=== PATIENT | female | born 1950 | race African-American/Black ===

== ENCOUNTER 2018-11-16 16:23 | Inpatient (IN) | payer MEDICARE, OTHER ==
[~2018-11-16] VITALS: Ht 160 cm; Wt 73.0 kg
[2018-11-16] MEDS ORDERED: ANORO ELLIPTA1 EACH (16:35)
[2018-11-16] MEDS ORDERED: BREO ELLIPTA 11 EACH IH (16:35)
[2018-11-16] MEDS ORDERED: VENTOLIN HFA18 GM INH (16:35)
[2018-11-16] MEDS ORDERED: METFORMIN HCL500 M1 ORAL (16:35)
[2018-11-16 16:45] VITALS: BP 116/78
[2018-11-16] MEDS ORDERED: Solu-MEDROL 125mg Inj IVP ONE (16:45)
[2018-11-16] MEDS: Ipratropium 0.02% Inh Soln 2.5ml UD HHN SCH ×2 (16:56→17:04)
[2018-11-16] MEDS: Albuterol ud Inhalation HHN SCH ×2 (16:57→17:04)
[2018-11-16 17:44] LABS: BASOPHILS % (AUTO) 1.7 % (0.0-2.0); EOSINOPHILS % (AUTO) 1.5 % (0.0-3.0); HEMATOCRIT 46.1 % (37.0-47.0); HEMOGLOBIN 15.9 G/DL (12.0-16.0); LYMPHOCYTES % (AUTO) 22.7 % (20.0-45.0); MEAN CORPUSCULAR VOLUME 87 FL (80-99); MONOCYTES % (AUTO) 5.3 % (1.0-10.0); NEUTROPHILS % (AUTO) 68.8 % (45.0-75.0); PLATELET COUNT 374 K/UL (150-450); RED BLOOD COUNT 5.32 M/UL (4.20-5.40); RED CELL DISTRIBUTION WIDTH 12.1 % (11.6-14.8)
[2018-11-16 17:50] LABS: ANION GAP 13 mmol/L (5-15); BLOOD UREA NITROGEN 20 mg/dL (7-18); CALCIUM 10.5 MG/DL (8.5-10.1); CARBON DIOXIDE 25 MMOL/L (21-32); CHLORIDE 101 MMOL/L (98-107); CREATININE 1.1 MG/DL (0.55-1.30); POTASSIUM 4.4 MMOL/L (3.5-5.1); SODIUM 139 MMOL/L (136-145)
[2018-11-16 18:20] LABS: ALANINE AMINOTRANSFERASE 25 U/L (12-78); ASPARTATE AMINO TRANSFERASE 26 U/L (15-37); BILIRUBIN,TOTAL 0.4 MG/DL (0.2-1.0); CKMB 4.6 NG/ML (0.0-3.6); CREATINE KINASE 519 U/L (26-308)
[2018-11-16 18:21] LABS: ALBUMIN 4.5 G/DL (3.4-5.0); ALBUMIN/GLOBULIN RATIO 0.9 (1.0-2.7); ALKALINE PHOSPHATASE 55 U/L (46-116)
[2018-11-16 18:26] LABS: APPEARANCE,URINE SLIGHTLY CLOUDY; BILIRUBIN, URINE NEGATIVE (NEGATIVE); GLUCOSE, URINE (UA) NEGATIVE (NEGATIVE); KETONES,URINE 1+ (NEGATIVE); LEUKOCYTE ESTERASE ,URINE 2+ (NEGATIVE); NITRITE,URINE NEGATIVE (NEGATIVE); PH,URINE 5 (4.5-8.0); PROTEIN,URINE 4+ (NEGATIVE); UROBILINOGEN,URINE 1 MG/DL (0.0-1.0)
[2018-11-16 18:27] LABS: COLOR,URINE YELLOW
--- NOTE | 2018-11-16 18:54 | Emergency Room Report ---
History of Present Illness General Chief Complaint: Asthma Source: Patient Present Illness [facility] [id number] female presents ED for evaluation. Referred by PMD Dr. Martin. She has been feeling short of breath with cough for the last few days. History of COPD. Cough is productive with yellowish phlegm. denies fevers or chills. Denies chest pain. Denies sick contacts or recent travel. No other aggravating or relieving factors. Denies any other associated symptoms Allergies: Coded Allergies: No Known Allergies (Unverified , 11/16/18) Patient History Past Medical History: DM, HTN, asthma, COPD Past Surgical History: none Pertinent Family History: none Social History: Denies: smoking, alcohol use, drug use Now: No Immunizations: UTD Reviewed Nursing Documentation: PMH: Agreed; PSxH: Agreed Nursing Documentation-PMH Past Medical History: No History, Except For Hx Hypertension: Yes Hx Asthma: Yes Hx COPD: Yes Hx Diabetes: Yes Review of Systems All Other Systems: negative except mentioned in HPI Physical Exam Vital Signs Date Time Temp Pulse Resp B/P (MAP) Pulse Ox O2 Delivery O2 Flow Rate FiO2 11/16/18 16:29 98.2 102 22 116/78 (91) 91 Room Air 11/16/18 16:30 21 Sp02 EP Interpretation: reviewed, normal General Appearance: no apparent distress, alert, GCS 15, non-toxic Head: normocephalic, atraumatic Eyes: bilateral eye normal inspection, bilateral eye PERRL ENT: hearing grossly normal, normal pharynx, no angioedema, normal voice Neck: full range of motion, supple/symm/no masses Respiratory: chest non-tender, speaking full sentences, wheezing Cardiovascular #1: regular rate, rhythm, no edema Cardiovascular #2: 2+ carotid (R), 2+ carotid (L), 2+ radial (R), 2+ radial (L) , 2+ dorsalis pedis (R), 2+ dorsalis pedis (L) Gastrointestinal: normal bowel sounds, non tender, soft, non-distended, no guarding, no rebound Rectal: deferred Genitourinary: normal inspection, no CVA tenderness Musculoskeletal: back normal, gait/station normal, normal range of motion, non- tender Neurologic: alert, oriented x3, responsive, motor strength/tone normal, sensory intact, speech normal Psychiatric: judgement/insight normal, memory normal, mood/affect normal, no suicidal/homicidal ideation Reflexes: 3+ bicep (R), 3+ bicep (L), 3+ tricep (R), 3+ tricep (L), 3+ knee (R) , 3+ knee (L) Skin: normal color, no rash, warm/dry, well hydrated Lymphatic: no adenopathy Medical Decision Making Diagnostic Impression: Primary Impression: COPD exacerbation ER Course Hospital Course 67-year-old F presenting to ED with SOB. h/o COPD Differential diagnoses include: Pneumonia, CHF exacerbation, pneumothorax, fluid overload Clinical course Patient placed on stretcher. On monitor tech with stable vitals. After initial history and physical, I ordered nebulizer treatments. I ordered labs, IV fluids, EKG, chest x-ray, blood cultures, UA. Labs - no leukocytosis noted, hemoglobin/hematocrit stable, electrolytes okay, lactate 2.8, troponins negative CXR - hyperinflated lungs. no infiltrates IVFS given. abx given. Not sepsis Case discussed with Dr. Martin and he agreed to the patient to his service for further care and support I feel this is a highly complex case requiring extensive working including EKG/ Rhythm strip, Xray/CT/US, Blood/urine lab work, repeat exams while in ED, and administration of strong opiates/narcotics for pain control, admission to hospital or close patient follow up. Diagnosis - COPD exacerbation Patient admitted to floor in serious condition Labs Test 11/16/18 17:07 11/16/18 18:00 White Blood Count 10.0 K/UL (4.8-10.8) Red Blood Count 5.32 M/UL (4.20-5.40) Hemoglobin 15.9 G/DL (12.0-16.0) Hematocrit 46.1 % (37.0-47.0) Mean Corpuscular Volume 87 FL (80-99) Mean Corpuscular Hemoglobin 29.9 PG (27.0-31.0) Mean Corpuscular Hemoglobin Concent 34.4 G/DL (32.0-36.0) Red Cell Distribution Width 12.1 % (11.6-14.8) Platelet Count 374 K/UL (150-450) Mean Platelet Volume 5.6 FL (6.5-10.1) Neutrophils (%) (Auto) 68.8 % (45.0-75.0) Lymphocytes (%) (Auto) 22.7 % (20.0-45.0) Monocytes (%) (Auto) 5.3 % (1.0-10.0) Eosinophils (%) (Auto) 1.5 % (0.0-3.0) Basophils (%) (Auto) 1.7 % (0.0-2.0) Sodium Level 139 MMOL/L (136-145) Potassium Level 4.4 MMOL/L (3.5-5.1) Chloride Level 101 MMOL/L (98-107) Carbon Dioxide Level 25 MMOL/L (21-32) Anion Gap 13 mmol/L (5-15) Blood Urea Nitrogen 20 mg/dL (7-18) Creatinine 1.1 MG/DL (0.55-1.30) Estimat Glomerular Filtration Rate > 60 mL/min (>60) Glucose Level 115 MG/DL (74-106) Lactic Acid Level 2.80 mmol/L (0.4-2.0) Calcium Level 10.5 MG/DL (8.5-10.1) Total Bilirubin 0.4 MG/DL (0.2-1.0) Aspartate Amino Transf (AST/SGOT) 26 U/L (15-37) Alanine Aminotransferase (ALT/SGPT) 25 U/L (12-78) Alkaline Phosphatase 55 U/L (46-116) Total Creatine Kinase 519 U/L (26-308) Creatine Kinase MB 4.6 NG/ML (0.0-3.6) Creatine Kinase MB Relative Index 0.8 Troponin I 0.000 ng/mL (0.000-0.056) Pro-B-Type Natriuretic Peptide 81 pg/mL (0-125) Total Protein 9.5 G/DL (6.4-8.2) Albumin 4.5 G/DL (3.4-5.0) Globulin 5.0 g/dL Albumin/Globulin Ratio 0.9 (1.0-2.7) Urine Color Yellow Urine Appearance Slightly cloudy Urine pH 5 (4.5-8.0) Urine Specific [place] 1.025 (1.005-1.035) Urine Protein 4+ (NEGATIVE) Urine Glucose (UA) Negative (NEGATIVE) Urine Ketones 1+ (NEGATIVE) Urine Blood 1+ (NEGATIVE) Urine Nitrite Negative (NEGATIVE) Urine Bilirubin Negative (NEGATIVE) Urine Urobilinogen 1 MG/DL (0.0-1.0) Urine Leukocyte Esterase 2+ (NEGATIVE) Urine RBC 5-10 /HPF (0 - 2) Urine WBC 2-4 /HPF (0 - 2) Urine Squamous Epithelial Cells Few /LPF (NONE/OCC) Urine Bacteria Many /HPF (NONE) EKG Diagnostic Results Rate: normal Rhythm: NSR ST Segments: no acute changes ASA given to the pt in ED: No Rhythm Strip Diag. Results EP Interpretation: yes Rhythm: NSR, no PVC's, no ectopy Chest X-Ray Diagnostic Results Chest X-Ray Diagnostic Results : Chest X-Ray Ordered: Yes # of Views/Limited/Complete: 1 View Indication: Shortness of Breath EP Interpretation: Yes Interpretation: no consolidation, no effusion, no pneumothorax, no acute cardiopulmonary disease Impression: No acute disease Electronically Signed by: Electronically signed by Pedro Leal MD Last Vital Signs Date Time Temp Pulse Resp B/P (MAP) Pulse Ox O2 Delivery O2 Flow Rate FiO2 11/16/18 16:45 98.2 80 20 116/78 97 Room Air 21 Status: improved Disposition: ADMITTED INPATIENT Condition: Serious Referrals: Lee Martin MD (PCP) Pedro Leal MD Nov 16, 2018 18:54
[2018-11-16] MEDS ORDERED: Sodium Chloride 2,200 ML IVLG ONE (20:00)
[2018-11-16 21:30] VITALS: BP 148/95
[2018-11-16] MEDS ORDERED: cefTRIAXone 1 GM in D5W 55 ML IVPB SCH (22:30)
[2018-11-17] VITALS (7 sets, daily range): BP systolic 97–113; BP diastolic 61–86
[2018-11-17] MEDS: Solu-MEDROL 40mg Inj IVP SCH ×3 (00:23→14:00)
[2018-11-17] MEDS: Albuterol/Ipratropium 3ml neb HHN SCH ×7 (01:35→23:11)
--- NOTE | 2018-11-17 03:01 | History and Physical Report ---
DATE OF ADMISSION: 11/16/2018 REASON FOR ADMISSION: Acute exacerbation of COPD. HISTORY OF PRESENT ILLNESS: This 67-year-old female, has had 2 weeks of progressive cough, yellow-green sputum production, and shortness of breath. She was treated with oral therapy, but failed to improve and in fact has not been able to catch her breath for the past day, wheezing nonstop, and unable to lie flat. She was seen in my office and then referred to the emergency room because of her failure to improve. PAST MEDICAL HISTORY: Hypertension, chronic obstructive pulmonary disease, type 2 diabetes mellitus, and peripheral artery disease. MEDICATIONS: Reviewed and reconciled. ALLERGIES: None known. SOCIAL HISTORY: Prior smoker. FAMILY HISTORY: Noncontributory. REVIEW OF SYSTEMS: She has had tactile fevers. No chills. There is no history of retinopathy. There is no known history of flow-limiting coronary disease. She had a normal coronary calcium scan in the past. Her echocardiogram has revealed normal ejection fraction with concentric hypertrophy and severe pulmonary hypertension with PA systolic pressure of 59. There is no history of positive PPD. There is no history of abnormal blood clotting. Diabetes is managed with oral therapy. Cholesterol parameters are not known. There is no history of thyroid disorder. There is no history of seizure or stroke. She denies change in bowel habits. There is no history of kidney disease. PHYSICAL EXAM: VITAL SIGNS: Blood pressure 116/78, pulse 102, respirations 22, and afebrile. Room air oxygen saturation 91% at rest. HEENT: Normocephalic and atraumatic. Conjunctivae pink. Sclerae are anicteric. Oropharynx clear. Mucous membrane is moist. NECK: Supple. Jugular venous pressure normal. There is some accessory muscle use. LUNGS: Poor breath sounds. Scattered rhonchi and expiratory wheezes. CARDIAC: Regular rhythm and rate. Normal S1, S2. There is a 1/6 systolic murmur at the lower left sternal border. ABDOMEN: Soft and nontender. No guarding, rebound, or masses. EXTREMITIES: No clubbing or cyanosis. No edema. NEUROLOGIC: Nonfocal. There is some resting tremor. No asterixis. SKIN: Intact. LABORATORY DATA: White count 10 and hemoglobin 15.9. Lactic acid 2.8. Sodium 139, potassium 4.4, bicarbonate 25, BUN 20, and creatinine 1.1. Glucose 115. CK 519. Troponin 0. Albumin 4.5. Chest x-ray reveals no acute process. IMPRESSION: 1. Chronic obstructive pulmonary disease with acute exacerbation. 2. Acute bronchospasm. 3. Acute bronchitis. 4. Lactic acidosis. 5. Hypoxia. 6. Type 2 diabetes mellitus with hyperglycemia. 7. Pulmonary hypertension. 8. Non-sustained ventricular ectopy. PLAN: 1. Inhaled bronchodilators. 2. Intravenous steroids. 3. Empiric antimicrobials. 4. Insulin coverage by sliding scale. 5. IV fluid hydration. 6. Serial lactic acid and CK levels. 7. DVT prophylaxis. 8. Avoid metformin. Lee Martin M.D. DR: CHEYENNE JOB#: [id number] CC: MARCELINO
[2018-11-17] MEDS ORDERED: NovoLOG Insulin Flexpen SUBQ SCH (06:30)
[2018-11-17] MEDS: NovoLOG Insulin Flexpen SUBQ SCH ×4 (07:25→21:13)
[2018-11-17 08:39] LABS: ALANINE AMINOTRANSFERASE 21 U/L (12-78); ALBUMIN 3.8 G/DL (3.4-5.0); ALBUMIN/GLOBULIN RATIO 0.8 (1.0-2.7); ALKALINE PHOSPHATASE 45 U/L (46-116); ANION GAP 11 mmol/L (5-15); ASPARTATE AMINO TRANSFERASE 20 U/L (15-37); BILIRUBIN,TOTAL 0.2 MG/DL (0.2-1.0); BLOOD UREA NITROGEN 19 mg/dL (7-18); CALCIUM 9.6 MG/DL (8.5-10.1); CARBON DIOXIDE 23 MMOL/L (21-32); CHLORIDE 104 MMOL/L (98-107); CREATINE KINASE 446 U/L (26-308); POTASSIUM 5.1 MMOL/L (3.5-5.1); SODIUM 138 MMOL/L (136-145)
--- NOTE | 2018-11-17 16:45 | Consultation ---
DATE OF CONSULTATION: 11/17/2018 PULMONARY CONSULTATION HISTORY OF PRESENT ILLNESS: This is a very pleasant 67-year-old female, who came to the hospital for shortness of breath. The patient reports history of chronic obstructive pulmonary disease and asthma. She has been a smoker in the past, but quit many years ago. She was seen and worked up and admitted to the hospital with diagnoses of respiratory insufficiency. PAST MEDICAL HISTORY: Diabetes mellitus, hypertension, asthma, and chronic obstructive pulmonary disease, she has been smoker in the past, but quit, does not smoke any more. CURRENT MEDICATIONS: Include Rocephin, DuoNebs, subcutaneous heparin, insulin sliding scale, methylprednisone 40 mg intravenous q.8, and albuterol. REVIEW OF SYSTEMS: Denies any headaches, hematemesis, melena, hematochezia, night sweats, or weight loss. PHYSICAL EXAMINATION: GENERAL: Reveals a 67-year-old female. HEENT: Unremarkable. LUNGS: Clear breath sounds bilaterally with few rhonchi. ABDOMEN: Soft. EXTREMITIES: There is no edema. NEUROLOGIC: Nonfocal. LABORATORY DATA: Lab testing shows elevated lactic acid of 2.8, which has increased further to 4.3. Glucose 145. Total CK is 446. Urinalysis is negative. Imaging studies per report is negative. IMPRESSION: 1. Worsening lactic acidemia. 2. Exacerbation of COPD. 3. Diabetes mellitus. PLAN: The patient is admitted to the hospital. Continue current medications and care. I will send urine toxicology. Provide intravenous fluids and breathing treatments. We will follow carefully. Edenilson Laird M.D. DR: NARENDRA JOB#: [id number] CC:
[2018-11-17] MEDS ORDERED: Heparin1,000 units/500ml Premix(Conc:2 units/ml) IV PRN (21:30)
[2018-11-17] MEDS ORDERED: Lidocaine 1% Plain 30 ml INJ PRN (21:30)
[2018-11-18] VITALS: BP 122/76
[2018-11-18] MEDS: Albuterol/Ipratropium 3ml neb HHN SCH ×6 (03:10→22:58)
[2018-11-18 04:00] VITALS: BP 115/67
--- NOTE | 2018-11-18 04:15 | Progress Note ---
DATE: 11/17/2018 INTERNAL MEDICINE PROGRESS NOTE SUBJECTIVE: The patient has poor intravenous access and presently, we were unable to obtain intravenous access even with the use of a vein finder. The patient still has shortness of breath with ambulation in the room. She still has congestion. OBJECTIVE: VITAL SIGNS: Blood pressure 113/72, pulse 85, and respirations 20. Afebrile. LUNGS: With coarse breath sounds. Few wheezes. CARDIAC: Regular rhythm and rate. Normal S1, S2 with a fourth heart sound. ABDOMEN: Soft. EXTREMITIES: No edema. LABORATORY DATA: Urine culture, gram-negative rods. Lactic acid 4.3, repeated 3.6. BUN 19 and creatinine 1. Potassium 5.1. TSH normal. Urine tox screen negative. IMPRESSION: 1. Chronic obstructive pulmonary disease exacerbation. 2. Acute bronchospasm. 3. Lactic acidosis. 4. Urinary tract infection. 5. Mild rhabdomyolysis. 6. Type 2 diabetes mellitus. PLAN: 1. Continue hydration. 2. Renal consult. 3. Antimicrobials. 4. Inhaled bronchodilators. 5. Intravenous steroids. 6. DVT prophylaxis. 7. No resumption of metformin. Lee Martin M.D. DR: CHEYENNE JOB#: [id number] CC: MARCELINO
[2018-11-18] MEDS: NovoLOG Insulin Flexpen SUBQ SCH ×4 (06:37→21:04)
[2018-11-18 08:00] VITALS: BP 111/82
--- NOTE | 2018-11-18 08:33 | Pulmonology Progress Note ---
Assessment/Plan Assessment/Plan 1. Worsening lactic acidemia. Now down-trending 2. Exacerbation of COPD. 3. Diabetes mellitus. PLAN: Continue current medications and care. Negative urine toxicology. Continue fluids and breathing treatments. I will follow carefully. Subjective Interval Events: Better today; urine tox negative; lactic acid decreazed Constitutional: Reports: no symptoms HEENT: Repors: no symptoms Respiratory: Reports: shortness of breath Cardiovascular: Reports: no symptoms Gastrointestinal/Abdominal: Reports: no symptoms Genitourinary: Reports: no symptoms Allergies: Coded Allergies: No Known Allergies (Unverified , 11/16/18) Objective Last 24 Hour Vital Signs Date Time Temp Pulse Resp B/P (MAP) Pulse Ox O2 Delivery O2 Flow Rate FiO2 11/18/18 07:23 89 18 99 Nasal Cannula 3.0 32 11/18/18 07:16 98 18 96 Nasal Cannula 3.0 32 11/18/18 04:00 98.4 80 20 115/67 (83) 98 11/18/18 03:23 92 18 97 Nasal Cannula 3.0 32 11/18/18 03:10 84 18 95 Nasal Cannula 3.0 32 11/18/18 00:00 98.1 95 20 122/76 (91) 96 11/17/18 23:25 94 18 96 Nasal Cannula 3.0 32 11/17/18 23:12 86 18 96 Nasal Cannula 3.0 32 11/17/18 21:00 Nasal Cannula 2.0 11/17/18 20:00 98.2 85 20 113/72 (86) 100 11/17/18 19:54 88 18 97 Nasal Cannula 3.0 32 11/17/18 19:42 88 20 97 Nasal Cannula 3.0 32 11/17/18 16:00 98.2 100 21 104/69 (81) 98 11/17/18 14:44 96 18 98 Nasal Cannula 3.0 32 11/17/18 14:40 94 20 98 Nasal Cannula 3.0 32 11/17/18 12:00 97.7 80 20 113/72 (86) 99 11/17/18 11:48 99 18 98 Nasal Cannula 3.0 32 11/17/18 11:40 92 20 98 Nasal Cannula 3.0 32 11/17/18 10:13 Nasal Cannula 2.0 11/17/18 10:06 88 103/71 (82) 11/17/18 08:37 99 18 98 Nasal Cannula 3.0 32 Intake and Output 11/17/18 11/18/18 19:00 07:00 Intake Total 1300 ml Output Total 300 ml Balance 1300 ml -300 ml Intake Oral 1000 ml IV Total 300 ml Output Urine Total 300 ml # Voids 5 # Bowel Movements 3 General Appearance: no acute distress HEENT: normocephalic Respiratory/Chest: chest wall non-tender, lungs clear Cardiovascular: normal peripheral pulses Abdomen: normal bowel sounds Microbiology Date/Time Source Procedure Growth Status 11/16/18 17:17 Blood Blood Culture - Preliminary NO GROWTH AFTER 24 HOURS Resulted 11/16/18 17:07 Blood Blood Culture - Preliminary NO GROWTH AFTER 24 HOURS Resulted 11/16/18 18:00 Urine,Clean Catch Urine Culture - Preliminary Gram Negative Simba Resulted Laboratory Tests 11/17/18 16:25: Lactic Acid Level 3.60H 11/17/18 19:45: Urine Opiates Screen Negative, Urine Barbiturates Screen Negative, Phencyclidine (PCP) Screen Negative, Urine Amphetamines Screen Negative, Urine Benzodiazepines Screen Negative, Urine Cocaine Screen Negative, Urine Marijuana (THC) Screen Negative Current Medications Medications (Trade) Dose Ordered Sig/Sapphire Route PRN Reason Start Time Stop Time Status Last Admin Dose Admin Acetaminophen (Tylenol) 650 mg Q4H PRN ORAL For Pain 11/17/18 19:00 12/17/18 18:59 11/18/18 06:43 Albuterol/ Ipratropium (Albuterol/ Ipratropium) 3 ml Q4HRT HHN 11/16/18 23:00 11/21/18 22:59 11/18/18 07:15 Azithromycin (Zithromax) 500 mg DAILY ORAL 11/18/18 09:00 11/25/18 08:59 Chlorhexidine Gluconate (Wen-Hex 2%) 1 applic DAILY@1999 TOPIC 11/18/18 20:00 12/18/18 19:59 Dextrose (Dextrose 50%) 25 ml Q30M PRN IV Hypoglycemia 11/17/18 01:30 12/17/18 01:29 Dextrose (Dextrose 50%) 50 ml Q30M PRN IV Hypoglycemia 11/17/18 01:30 12/17/18 01:29 Heparin Sodium (Porcine) (Heparin 5000 units/ml) 5,000 units EVERY 12 HOURS SUBQ 11/18/18 09:00 12/18/18 08:59 Heparin Sodium/ Sodium Chloride (Heparin 1000 units/500ml Premix) 1,000 unit ONCE PRN IV picc line placement 11/17/18 21:30 11/19/18 21:29 Insulin Aspart (NovoLOG) BEFORE MEALS AND HS SUBQ 11/17/18 06:30 12/17/18 06:29 11/18/18 06:37 Lidocaine HCl (Xylocaine 1% 30ml) 30 ml ONCE PRN INJ picc line placement 11/17/18 21:30 11/19/18 21:29 Methylprednisolone Sodium Succinate (Solu-MEDROL) 40 mg EVERY 12 HOURS IVP 11/18/18 09:00 12/18/18 08:59 Sodium Chloride 1,000 ml @ 100 mls/hr Q10H IV 11/16/18 21:30 12/16/18 21:29 11/17/18 00:23 Edenilson Laird MD Nov 18, 2018 08:33
[2018-11-18] MEDS: Heparin 5000 units/ml inj SUBQ SCH ×2 (09:00→21:03)
[2018-11-18] MEDS ORDERED: Solu-MEDROL 40mg Inj IVP SCH (09:00)
[2018-11-18] MEDS ORDERED: Azithromycin 250mg tab ORAL SCH (09:00)
[2018-11-18 12:00] VITALS: BP 117/87
[2018-11-18] MEDS: Solu-MEDROL 40mg Inj IVP SCH ×2 (15:47→20:59)
[2018-11-18] MEDS: cefTRIAXone 1 GM in D5W 55 ML IVPB SCH (15:53)
[2018-11-18 16:00] VITALS: BP 102/75
[2018-11-18 16:25] LABS: BASOPHILS % (AUTO) 0.3 % (0.0-2.0); EOSINOPHILS % (AUTO) 0.2 % (0.0-3.0); HEMATOCRIT 34.6 % (37.0-47.0); HEMOGLOBIN 11.7 G/DL (12.0-16.0); MEAN CORPUSCULAR VOLUME 89 FL (80-99); MONOCYTES % (AUTO) 7.8 % (1.0-10.0); NEUTROPHILS % (AUTO) 79.8 % (45.0-75.0); PLATELET COUNT 286 K/UL (150-450); RED CELL DISTRIBUTION WIDTH 12.4 % (11.6-14.8); WHITE BLOOD COUNT 15.7 K/UL (4.8-10.8)
[2018-11-18 16:41] LABS: ALANINE AMINOTRANSFERASE 30 U/L (12-78); ALBUMIN 3.3 G/DL (3.4-5.0); ALBUMIN/GLOBULIN RATIO 0.9 (1.0-2.7); ALKALINE PHOSPHATASE 51 U/L (46-116); ANION GAP 3 mmol/L (5-15); ASPARTATE AMINO TRANSFERASE 24 U/L (15-37); BILIRUBIN,TOTAL 0.1 MG/DL (0.2-1.0); BLOOD UREA NITROGEN 19 mg/dL (7-18); CALCIUM 9.1 MG/DL (8.5-10.1); CARBON DIOXIDE 31 MMOL/L (21-32); CHLORIDE 105 MMOL/L (98-107); CREATINE KINASE 261 U/L (26-308); SODIUM 139 MMOL/L (136-145)
--- NOTE | 2018-11-18 17:46 | Diagnostic Imaging Report ---
Indication: Dyspnea Comparison: None A single view chest radiograph was obtained. Findings: No infiltrate identified. Heart size is within normal limits. The aorta is mildly ectatic. Pulmonary vascularity is within normal limits. No pleural effusion identified. Bones are osteopenic. IMPRESSION: No acute disease
--- NOTE | 2018-11-18 17:47 | Diagnostic Imaging Report ---
Indications: Needs long-term IV access Technique: Ultrasound confirms patent compressible left basilic vein. Total sterile technique, including sterile probe cover and sterile gel, hat, mask, sterile gown, large sterile drape, and preparation with 2% chlorhexidine utilized. Local anesthesia with 1% lidocaine. Under real-time ultrasound guidance, puncture basilic vein using 21-gauge needle, documented and archived, passage 0.018 guidewire under direct fluoroscopy, which was used to determine appropriate catheter length, exchange for 4 [place] peel-away sheath. 4 [place] Bard dual-lumen power PICC cut to 46 cm. It was inserted through the peel-away sheath. Peel-away sheath and guidewire removed. Catheter fixed to the skin. Both catheter ports aspirated and flushed. Patient tolerated procedure well, without immediate complication. Digital radiograph documents satisfactory catheter tip position, at the cavoatrial junction. Total fluoroscopy time 25.7 seconds. Total dose area product 2.31 milligray Total number of images: 1 Impression: Successful placement of PICC under sonographic and fluoroscopic guidance, as described above.
--- NOTE | 2018-11-18 19:15 | Consultation ---
DATE OF CONSULTATION: 11/18/2018 NEPHROLOGY CONSULTATION REASON FOR CONSULTATION: Lactic acidosis. HISTORY OF PRESENT ILLNESS: The patient is a 67-year-old lady with a history of chronic obstructive pulmonary disease who presents with increasing shortness of breath, wheezing, cough, yellow-green sputum. She was admitted to the hospital for the above. She was found to have elevated lactate levels. PAST MEDICAL HISTORY: There is a history of diabetes type 2, peripheral vascular disease, and hypertension. PAST SURGICAL HISTORY: Left knee. ALLERGIES: None known. HABITS: She is a smoker and quit. Denies alcohol or drugs. HOME MEDICATIONS: She cannot list other than metformin and inhalers. Medications listed in the computer database are reviewed. REVIEW OF SYSTEMS: HEAD EYES, EARS, NOSE, AND THROAT: The patient's hearing is good. ENDOCRINE: Diabetes as above. No known thyroid disease. PULMONARY: History of chronic obstructive pulmonary disease and severe pulmonary hypertension. CARDIAC: History of normal ejection fraction. No definite myocardial infarction. GASTROINTESTINAL: Intermittent heartburn, mild. No hematochezia or melena. GENITOURINARY: No dysuria or hematuria. MUSCULOSKELETAL: No severe arthritis. NEUROLOGIC: No CVA or seizures. PHYSICAL EXAMINATION: GENERAL: The patient is alert lady, lying in bed, in no acute distress. VITAL SIGNS: Temperature 98.4, pulse 80, respiratory rate 20, blood pressure 115/67. HEENT: Sclerae are nonicteric. Ocular motions intact in all directions. Oral mucosa moist. NECK: No adenopathy or thyroid enlargement. LUNGS: Clear. Distant breath sounds. HEART: Rhythm is regular. I hear no murmur. ABDOMEN: Soft without organomegaly or masses. EXTREMITIES: No edema, cyanosis, or clubbing. NEUROLOGIC: She is alert and oriented. Cranial nerves are intact. PERTINENT LABORATORY DATA: On admission, sodium 139, potassium 4.4, chloride 101, CO2 25, BUN 20 creatinine 1.1. Glucose 115. Calcium is 10.5 with an albumin of 4.5. CPK is elevated at 519. Troponin is 0. Lactate level 2.8, 3.2, 4.3, and 3.6. Repeat CPK 446. TSH is 1.11. White count 10,000 and hemoglobin is 15.9, Tox screen, urine is negative. Urinalysis shows 2 to 4 white cells and 5 to 10 red cells per high-power field. She had a urine culture that is positive. She has 4+ proteinuria. IMPRESSION: 1. Chronic obstructive pulmonary disease with acute exacerbation 2. Possible sepsis although clinically she does not appear septic and labs do not seem to correlate with sepsis although she did have lactic acid elevation. 3. Elevated lactate level which could be false positive. It could be related to her taking metformin at home. She could have underlying sepsis. She does not have a metabolic acidosis based on her electrolytes. Her CO2 serially has been normal so it appears that if she did have a transient lactic acidosis, she is improving. PLAN: Repeat laboratories are pending. I would keep her well hydrated. Continue antibiotics and pulmonary care. I will hold off on metformin until she is stabilized and then possibly resume. Thank you so much for allowing me to participate in her care. Vic Boudreaux M.D. DR: Rohit JOB#: [id number] CC:
[2018-11-18 19:57] LABS: APPEARANCE,URINE CLEAR; BILIRUBIN, URINE NEGATIVE (NEGATIVE); COLOR,URINE PALE YELLOW; GLUCOSE, URINE (UA) NEGATIVE (NEGATIVE); KETONES,URINE NEGATIVE (NEGATIVE); LEUKOCYTE ESTERASE ,URINE 1+ (NEGATIVE); NITRITE,URINE NEGATIVE (NEGATIVE); PH,URINE 6 (4.5-8.0); PROTEIN,URINE NEGATIVE (NEGATIVE); UROBILINOGEN,URINE NORMAL MG/DL (0.0-1.0)
[2018-11-18 20:00] VITALS: BP 124/84
[2018-11-18] MEDS: Dyna-Hex 2% Top Sol 2oz TOPIC SCH (20:58)
[2018-11-19] VITALS: BP 109/78
[2018-11-19] MEDS: Albuterol/Ipratropium 3ml neb HHN SCH ×6 (03:14→23:00)
[2018-11-19 04:00] VITALS: BP 140/86
--- NOTE | 2018-11-19 04:00 | Progress Note ---
DATE: 11/18/2018 INTERNAL MEDICINE PROGRESS NOTE SUBJECTIVE: PICC line was placed for adequate access. The patient is back on her intravenous therapy. She still has wheezing and shortness of breath. OBJECTIVE: VITAL SIGNS: Blood pressure 124/84, pulse 106, and respiratory rate 18. LUNGS: Diminished breath sounds and expiratory wheezes. HEART: Regular rhythm. Rapid rate. Normal S1 and S2. ABDOMEN: Soft. EXTREMITIES: No edema. LABORATORY DATA: Urine culture is pending. White count 15 and hemoglobin 11.7. Potassium 4, BUN 19, creatinine 1, and albumin 3.3. Lactic acid now 1.5. CK down to 261. IMPRESSION: 1. Resolved lactic acidosis. 2. Chronic obstructive pulmonary disease with acute exacerbation. 3. Type 2 diabetes mellitus. 4. Hypertension. 5. ____ rhabdomyolysis. 6. Urinary tract infection. PLAN: 1. Taper intravenous fluids. 2. Taper steroids ____ bronchospasm improves. 3. Empiric antimicrobials. 4. Await final urine culture. 5. No resumption of metformin. Lee Martin M.D. DR: LINDSAY JOB#: [id number] CC:
[2018-11-19] MEDS: Solu-MEDROL 40mg Inj IVP SCH (06:38)
[2018-11-19] MEDS: NovoLOG Insulin Flexpen SUBQ SCH ×4 (06:40→21:51)
--- NOTE | 2018-11-19 07:58 | Pulmonology Progress Note ---
Assessment/Plan Assessment/Plan 1. Worsening lactic acidemia. Now down-trending 2. Exacerbation of COPD. 3. Diabetes mellitus. PLAN: Continue current medications and care. Negative urine toxicology. Continue fluids and breathing treatments. I will follow carefully. Seen by nephrology. Subjective Interval Events: No new events Constitutional: Reports: no symptoms HEENT: Repors: no symptoms Respiratory: Reports: no symptoms Cardiovascular: Reports: no symptoms Gastrointestinal/Abdominal: Reports: no symptoms Genitourinary: Reports: no symptoms Neurologic: Reports: no symptoms Allergies: Coded Allergies: No Known Allergies (Unverified , 11/16/18) Objective Last 24 Hour Vital Signs Date Time Temp Pulse Resp B/P (MAP) Pulse Ox O2 Delivery O2 Flow Rate FiO2 11/19/18 07:35 104 20 95 Nasal Cannula 2.0 28 11/19/18 07:35 95 Nasal Cannula 2.0 28 11/19/18 04:00 98.4 110 18 140/86 (104) 95 11/19/18 03:21 102 20 100 Nasal Cannula 2.0 28 11/19/18 03:14 104 20 98 Nasal Cannula 2.0 28 11/19/18 00:00 98.1 109 19 109/78 (88) 97 11/18/18 23:05 99 20 99 Nasal Cannula 3.0 32 11/18/18 22:58 98 20 96 Nasal Cannula 3.0 32 11/18/18 21:00 Nasal Cannula 2.0 11/18/18 20:15 95 Nasal Cannula 3.0 32 11/18/18 20:08 110 18 94 Nasal Cannula 3.0 32 11/18/18 20:00 98.7 106 18 124/84 (97) 98 11/18/18 16:00 97.4 108 22 102/75 (84) 99 11/18/18 15:47 105 20 98 Nasal Cannula 3.0 32 11/18/18 15:32 111 20 99 Nasal Cannula 3.0 32 11/18/18 12:00 97.0 117 22 117/87 (97) 98 11/18/18 12:00 98 20 99 Nasal Cannula 3.0 32 11/18/18 11:53 105 20 98 Nasal Cannula 3.0 32 11/18/18 09:00 Nasal Cannula 2.0 11/18/18 08:00 97.2 88 22 111/82 (92) 98 Intake and Output 11/18/18 11/19/18 19:00 07:00 Intake Total 1185 ml 450 ml Balance 1185 ml 450 ml Intake Oral 960 ml IV Total 225 ml 450 ml # Voids 3 2 General Appearance: no acute distress HEENT: normocephalic Respiratory/Chest: chest wall non-tender Cardiovascular: normal peripheral pulses, normal rate Abdomen: normal bowel sounds Microbiology Date/Time Source Procedure Growth Status 11/16/18 17:17 Blood Blood Culture - Preliminary NO GROWTH AFTER 48 HOURS Resulted 11/16/18 17:07 Blood Blood Culture - Preliminary NO GROWTH AFTER 48 HOURS Resulted 11/16/18 18:00 Urine,Clean Catch Urine Culture - Final Escherichia Coli Complete Laboratory Tests 11/18/18 15:30: White Blood Count 15.7H, Red Blood Count 3.90L, Hemoglobin 11.7L, Hematocrit 34.6L, Mean Corpuscular Volume 89, Mean Corpuscular Hemoglobin 30.0, Mean Corpuscular Hemoglobin Concent 33.8, Red Cell Distribution Width 12.4, Platelet Count 286, Mean Platelet Volume 5.5L, Neutrophils (%) (Auto) 79.8H, Lymphocytes (%) (Auto) 12.0L, Monocytes (%) (Auto) 7.8, Eosinophils (%) (Auto) 0.2, Basophils (%) (Auto) 0.3, Sodium Level 139, Potassium Level 4.0, Chloride Level 105, Carbon Dioxide Level 31, Anion Gap 3L, Blood Urea Nitrogen 19H, Creatinine 1.0, Estimat Glomerular Filtration Rate > 60, Glucose Level 115H, Lactic Acid Level 1.50, Calcium Level 9.1, Total Bilirubin 0.1L, Aspartate Amino Transf (AST /SGOT) 24, Alanine Aminotransferase (ALT/SGPT) 30, Alkaline Phosphatase 51, Total Creatine Kinase 261, Total Protein 7.1, Albumin 3.3L, Globulin 3.8, Albumin/Globulin Ratio 0.9L 11/18/18 18:30: Urine Color Pale yellow, Urine Appearance Clear, Urine pH 6, Urine Specific [place] 1.020, Urine Protein Negative, Urine Glucose (UA) Negative, Urine Ketones Negative, Urine Blood Negative, Urine Nitrite Negative, Urine Bilirubin Negative, Urine Urobilinogen Normal, Urine Leukocyte Esterase 1+H, Urine RBC 0-2 , Urine WBC 0-2, Urine Squamous Epithelial Cells ModerateH, Urine Bacteria Occasional, Urine Random Creatinine [Pending], Urine Random Microalbumin [ Pending], Urine Microalbumin/Creatinine Ratio [Pending] Current Medications Medications (Trade) Dose Ordered Sig/Sapphire Route PRN Reason Start Time Stop Time Status Last Admin Dose Admin Acetaminophen (Tylenol) 650 mg Q4H PRN ORAL For Pain 11/17/18 19:00 12/17/18 18:59 11/19/18 06:38 Albuterol/ Ipratropium (Albuterol/ Ipratropium) 3 ml Q4HRT HHN 11/16/18 23:00 11/21/18 22:59 11/19/18 07:35 Ceftriaxone Sodium 1 gm/ Dextrose 55 ml @ 110 mls/hr Q24H IVPB 11/18/18 15:00 11/25/18 14:59 11/18/18 15:53 Chlorhexidine Gluconate (Wen-Hex 2%) 1 applic DAILY@2000 TOPIC 11/18/18 20:00 12/18/18 19:59 11/18/18 20:58 Dextrose (Dextrose 50%) 25 ml Q30M PRN IV Hypoglycemia 11/17/18 01:30 12/17/18 01:29 Dextrose (Dextrose 50%) 50 ml Q30M PRN IV Hypoglycemia 11/17/18 01:30 12/17/18 01:29 Heparin Sodium (Porcine) (Heparin 5000 units/ml) 5,000 units EVERY 12 HOURS SUBQ 11/18/18 09:00 12/18/18 08:59 11/18/18 21:03 Heparin Sodium/ Sodium Chloride (Heparin 1000 units/500ml Premix) 1,000 unit ONCE PRN IV picc line placement 11/17/18 21:30 11/19/18 21:29 Insulin Aspart (NovoLOG) BEFORE MEALS AND HS SUBQ 11/17/18 06:30 12/17/18 06:29 11/19/18 06:40 Lidocaine HCl (Xylocaine 1% 30ml) 30 ml ONCE PRN INJ picc line placement 11/17/18 21:30 11/19/18 21:29 Methylprednisolone Sodium Succinate (Solu-MEDROL) 40 mg EVERY 8 HOURS IVP 11/18/18 14:00 12/18/18 13:59 11/19/18 06:38 Edenilson Laird MD Nov 19, 2018 07:58
[2018-11-19 08:00] VITALS: BP 135/82
[2018-11-19] MEDS: Heparin 5000 units/ml inj SUBQ SCH ×2 (08:50→21:50)
[2018-11-19] MEDS ORDERED: Solu-MEDROL 40mg Inj IVP SCH (09:00)
[2018-11-19] MEDS: Guaifenesin/DM 10ml syrup ORAL PRN ×3 (09:14→21:48)
--- NOTE | 2018-11-19 10:07 | Nephrology Progress Note ---
Assessment/Plan Problem List: (1) Diabetes (2) Lactic acid acidosis (3) COPD exacerbation Plan transient high lactate with normal CO2 could be lab error or result of acute infection--resolving, no further evaluation needed Subjective Constitutional: Reports: weakness HEENT: Reports: no symptoms Genitourinary: Reports: no symptoms Neurologic/Psychiatric: Reports: no symptoms Objective Objective Last 24 Hour Vital Signs Date Time Temp Pulse Resp B/P (MAP) Pulse Ox O2 Delivery O2 Flow Rate FiO2 11/19/18 08:00 98.8 96 18 135/82 (99) 97 11/19/18 07:45 104 20 99 Nasal Cannula 2.0 28 11/19/18 07:35 104 20 95 Nasal Cannula 2.0 28 11/19/18 07:35 95 Nasal Cannula 2.0 28 11/19/18 04:00 98.4 110 18 140/86 (104) 95 11/19/18 03:21 102 20 100 Nasal Cannula 2.0 28 11/19/18 03:14 104 20 98 Nasal Cannula 2.0 28 11/19/18 00:00 98.1 109 19 109/78 (88) 97 11/18/18 23:05 99 20 99 Nasal Cannula 3.0 32 11/18/18 22:58 98 20 96 Nasal Cannula 3.0 32 11/18/18 21:00 Nasal Cannula 2.0 11/18/18 20:15 95 Nasal Cannula 3.0 32 11/18/18 20:08 110 18 94 Nasal Cannula 3.0 32 11/18/18 20:00 98.7 106 18 124/84 (97) 98 11/18/18 16:00 97.4 108 22 102/75 (84) 99 11/18/18 15:47 105 20 98 Nasal Cannula 3.0 32 11/18/18 15:32 111 20 99 Nasal Cannula 3.0 32 11/18/18 12:00 97.0 117 22 117/87 (97) 98 11/18/18 12:00 98 20 99 Nasal Cannula 3.0 32 11/18/18 11:53 105 20 98 Nasal Cannula 3.0 32 Intake and Output 11/18/18 11/19/18 19:00 07:00 Intake Total 1185 ml 450 ml Balance 1185 ml 450 ml Intake Oral 960 ml IV Total 225 ml 450 ml # Voids 3 2 Laboratory Tests 11/18/18 15:30: White Blood Count 15.7H, Red Blood Count 3.90L, Hemoglobin 11.7L, Hematocrit 34.6L, Mean Corpuscular Volume 89, Mean Corpuscular Hemoglobin 30.0, Mean Corpuscular Hemoglobin Concent 33.8, Red Cell Distribution Width 12.4, Platelet Count 286, Mean Platelet Volume 5.5L, Neutrophils (%) (Auto) 79.8H, Lymphocytes (%) (Auto) 12.0L, Monocytes (%) (Auto) 7.8, Eosinophils (%) (Auto) 0.2, Basophils (%) (Auto) 0.3, Sodium Level 139, Potassium Level 4.0, Chloride Level 105, Carbon Dioxide Level 31, Anion Gap 3L, Blood Urea Nitrogen 19H, Creatinine 1.0, Estimat Glomerular Filtration Rate > 60, Glucose Level 115H, Lactic Acid Level 1.50, Calcium Level 9.1, Total Bilirubin 0.1L, Aspartate Amino Transf (AST /SGOT) 24, Alanine Aminotransferase (ALT/SGPT) 30, Alkaline Phosphatase 51, Total Creatine Kinase 261, Total Protein 7.1, Albumin 3.3L, Globulin 3.8, Albumin/Globulin Ratio 0.9L 11/18/18 18:30: Urine Color Pale yellow, Urine Appearance Clear, Urine pH 6, Urine Specific [place] 1.020, Urine Protein Negative, Urine Glucose (UA) Negative, Urine Ketones Negative, Urine Blood Negative, Urine Nitrite Negative, Urine Bilirubin Negative, Urine Urobilinogen Normal, Urine Leukocyte Esterase 1+H, Urine RBC 0-2 , Urine WBC 0-2, Urine Squamous Epithelial Cells ModerateH, Urine Bacteria Occasional, Urine Random Creatinine [Pending], Urine Random Microalbumin [ Pending], Urine Microalbumin/Creatinine Ratio [Pending] Height (Feet): 5 Height (Inches): 3.00 Weight (Pounds): 161 General Appearance: no apparent distress, alert EENT: normal ENT inspection Neck: normal alignment Cardiovascular: regular rhythm Respiratory/Chest: rhonchi - bilaterally Abdomen: non tender Extremities: other - no edema Neurologic: hose suspender cutter II-XII grossly normal Vic Boudreaux MD Nov 19, 2018 10:07
[2018-11-19 12:00] VITALS: BP 135/45
[2018-11-19] MEDS: cefTRIAXone 1 GM in D5W 55 ML IVPB SCH (15:26)
[2018-11-19 16:00] VITALS: BP 130/99
[2018-11-19] MEDS ORDERED: NS 275ml ONE (16:36)
[2018-11-19] MEDS ORDERED: 1/2 NS 1000ml IV ONE (16:36)
[2018-11-19] MEDS ORDERED: Tubing IV Secondary IV ONE (16:36)
[2018-11-19] MEDS ORDERED: Isovue-370 150ml vial INJ PRN (19:45)
[2018-11-19 20:00] VITALS: BP 128/82
[2018-11-19] MEDS: Dyna-Hex 2% Top Sol 2oz TOPIC SCH (21:48)
[2018-11-20] VITALS: BP 132/84
--- NOTE | 2018-11-20 | Progress Note ---
DATE: 11/19/2018 CARDIOLOGY PROGRESS NOTE SUBJECTIVE: The patient is short of breath with minimal activity. However, this is not too much worse than her baseline. Wheezing has decreased. She still feels weak. OBJECTIVE: VITAL SIGNS: Blood pressure 135/45, pulse 115, respirations 22, afebrile. LUNGS: Diminished breath sounds. No wheezes. HEART: Regular rhythm. Rapid rate. Normal S1, S2. ABDOMEN: Soft. EXTREMITIES: Trace edema. Poor peripheral access. LABORATORY DATA: Urine culture is positive for E. coli, sensitive to all antibiotics. IMPRESSION: 1. Metabolic acidosis, resolved. 2. Type 2 diabetes mellitus, stable. 3. COPD exacerbation. 4. Sinus tachycardia. 5. Severe dyspnea. 6. Urinary tract infection PLAN: 1. CT scan of the chest. 2. Taper steroids. 3. Continue antimicrobials. 4. No resumption of metformin. Lee Martin M.D. DR: IFTIKHAR JOB#: [id number] CC:
[2018-11-20] MEDS: Albuterol/Ipratropium 3ml neb HHN SCH ×6 (03:00→22:55)
[2018-11-20 04:00] VITALS: BP 128/80
[2018-11-20] MEDS: NovoLOG Insulin Flexpen SUBQ SCH ×4 (06:19→21:41)
[2018-11-20 08:00] VITALS: BP 128/80
--- NOTE | 2018-11-20 08:06 | Pulmonology Progress Note ---
Assessment/Plan Assessment/Plan 1. Worsening lactic acidemia. Now down-trending 2. Exacerbation of COPD. 3. Diabetes mellitus. PLAN: Continue current medications and care. Negative urine toxicology. Continue fluids and breathing treatments. I will follow carefully. Seen by nephrology. Taper steroids CT chest ordered by PMD Subjective Interval Events: Better but still very short of breath Constitutional: Reports: no symptoms HEENT: Repors: no symptoms Respiratory: Reports: shortness of breath Cardiovascular: Reports: no symptoms Gastrointestinal/Abdominal: Reports: no symptoms Genitourinary: Reports: no symptoms Allergies: Coded Allergies: No Known Allergies (Unverified , 11/16/18) Objective Last 24 Hour Vital Signs Date Time Temp Pulse Resp B/P (MAP) Pulse Ox O2 Delivery O2 Flow Rate FiO2 11/20/18 07:26 96 Nasal Cannula 2.0 28 11/20/18 07:26 Nasal Cannula 11/20/18 07:25 Nasal Cannula 11/20/18 04:00 98.7 84 18 128/80 (96) 98 11/20/18 03:20 Nasal Cannula 11/20/18 03:20 Nasal Cannula 11/20/18 00:00 97.4 90 18 132/84 (100) 98 11/19/18 23:07 Nasal Cannula 11/19/18 23:07 Nasal Cannula 11/19/18 21:00 Nasal Cannula 2.0 11/19/18 20:00 97.7 86 18 128/82 (97) 98 11/19/18 18:49 109 18 99 Nasal Cannula 2.0 11/19/18 18:42 94 Nasal Cannula 2.0 11/19/18 18:40 109 20 94 Nasal Cannula 2.0 11/19/18 16:00 98.3 90 19 130/99 (109) 98 11/19/18 15:11 Nasal Cannula 2.0 28 11/19/18 15:11 Nasal Cannula 2.0 28 11/19/18 12:00 98.5 115 22 135/45 (75) 96 11/19/18 10:48 102 20 100 Nasal Cannula 2.0 11/19/18 10:39 101 20 95 Nasal Cannula 2.0 28 11/19/18 09:00 Nasal Cannula 2.0 Intake and Output 11/19/18 11/20/18 18:59 06:59 Intake Total 1100 ml 985 ml Balance 1100 ml 985 ml Intake Oral 1100 ml 460 ml IV Total 525 ml # Voids 6 2 General Appearance: no acute distress HEENT: normocephalic Respiratory/Chest: chest wall non-tender, decreased breath sounds Cardiovascular: normal peripheral pulses, normal rate Abdomen: normal bowel sounds Current Medications Medications (Trade) Dose Ordered Sig/Sapphire Route PRN Reason Start Time Stop Time Status Last Admin Dose Admin Acetaminophen (Tylenol) 650 mg Q4H PRN ORAL For Pain 11/17/18 19:00 12/17/18 18:59 11/19/18 21:48 Albuterol/ Ipratropium (Albuterol/ Ipratropium) 3 ml Q4HRT HHN 11/16/18 23:00 11/21/18 22:59 11/19/18 18:40 Ceftriaxone Sodium 1 gm/ Dextrose 55 ml @ 110 mls/hr Q24H IVPB 11/18/18 15:00 11/25/18 14:59 11/19/18 15:26 Chlorhexidine Gluconate (Wen-Hex 2%) 1 applic DAILY@2000 TOPIC 11/18/18 20:00 12/18/18 19:59 11/19/18 21:48 Dextrose (Dextrose 50%) 25 ml Q30M PRN IV Hypoglycemia 11/17/18 01:30 12/17/18 01:29 Dextrose (Dextrose 50%) 50 ml Q30M PRN IV Hypoglycemia 11/17/18 01:30 12/17/18 01:29 Guaifenesin/ Dextromethorphan (Robitussin DM Syrup) 10 ml Q4H PRN ORAL For Cough 11/19/18 09:00 12/19/18 08:59 11/19/18 21:48 Heparin Sodium (Porcine) (Heparin 5000 units/ml) 5,000 units EVERY 12 HOURS SUBQ 11/18/18 09:00 12/18/18 08:59 11/19/18 21:50 Insulin Aspart (NovoLOG) BEFORE MEALS AND HS SUBQ 11/17/18 06:30 12/17/18 06:29 11/19/18 21:51 Iopamidol (Isovue-370 150ml) 150 ml NOW PRN INJ Radiology Procedure 11/19/18 19:45 11/21/18 19:45 Methylprednisolone Sodium Succinate (Solu-MEDROL) 40 mg DAILY IVP 11/20/18 09:00 12/20/18 08:59 Sodium Chloride 1,000 ml @ 75 mls/hr [id number] IV 11/19/18 19:45 12/19/18 19:44 11/19/18 21:49 Edenilson Laird MD Nov 20, 2018 08:06
[2018-11-20] MEDS: Solu-MEDROL 40mg Inj IVP SCH (08:52)
[2018-11-20] MEDS: Heparin 5000 units/ml inj SUBQ SCH ×2 (08:53→21:40)
[2018-11-20 12:11] VITALS: BP 121/96
[2018-11-20] MEDS: Guaifenesin/DM 10ml syrup ORAL PRN ×3 (12:26→23:48)
[2018-11-20] MEDS: cefTRIAXone 1 GM in D5W 55 ML IVPB SCH (15:06)
[2018-11-20 16:38] VITALS: BP 146/89
[2018-11-20 20:00] VITALS: BP 150/88
[2018-11-20] MEDS: Dyna-Hex 2% Top Sol 2oz TOPIC SCH (21:36)
--- NOTE | 2018-11-20 22:15 | Progress Note ---
DATE: 11/20/2018 INTERNAL MEDICINE PROGRESS NOTE SUBJECTIVE: The patient without any new complaints, but still very short of breath, walking more than out of the room. OBJECTIVE: VITAL SIGNS: Blood pressure 128/80, pulse 84, and respiratory rate 18. LUNGS: Diminished breath sounds. No wheezing. CARDIAC: Regular rhythm and rate. Normal S1 and S2. ABDOMEN: Soft. EXTREMITIES: No edema. IMPRESSION: 1. COPD exacerbation. 2. Paroxysmal bronchospasm and dyspnea. 3. Pulmonary hypertension. 4. Escherichia coli urinary tract infection. 5. Resolved lactic acidosis. 6. Type 2 diabetes mellitus. PLAN: 1. Steroid taper. 2. Inhaled bronchodilators. 3. Nasal oxygen. 4. CT scan of the chest. Lee Martin M.D. DR: ANTWAN JOB#: [id number] CC:
[2018-11-21] VITALS: BP 140/81
[2018-11-21] MEDS: Albuterol/Ipratropium 3ml neb HHN SCH ×5 (03:22→20:26)
[2018-11-21 04:00] VITALS: BP 127/78
[2018-11-21] MEDS: NovoLOG Insulin Flexpen SUBQ SCH ×4 (05:42→20:42)
[2018-11-21 08:00] VITALS: BP 133/81
[2018-11-21] MEDS: Solu-MEDROL 40mg Inj IVP SCH (08:36)
[2018-11-21] MEDS: Heparin 5000 units/ml inj SUBQ SCH ×2 (08:37→20:17)
--- NOTE | 2018-11-21 09:45 | Pulmonology Progress Note ---
Assessment/Plan Assessment/Plan 1. Lactic acidemia. Improved 2. Exacerbation of COPD. 3. Diabetes mellitus. PLAN: Continue current medications and care. Negative urine toxicology. Continue fluids and breathing treatments. I will follow carefully. Seen by nephrology. Taper steroids CT chest ordered by PMD Subjective Interval Events: None new; doing better Constitutional: Reports: no symptoms HEENT: Repors: no symptoms Respiratory: Reports: no symptoms Cardiovascular: Reports: no symptoms Gastrointestinal/Abdominal: Reports: no symptoms Genitourinary: Reports: no symptoms Allergies: Coded Allergies: No Known Allergies (Unverified , 11/16/18) Objective Last 24 Hour Vital Signs Date Time Temp Pulse Resp B/P (MAP) Pulse Ox O2 Delivery O2 Flow Rate FiO2 11/21/18 08:00 96.9 100 18 133/81 (98) 96 11/21/18 07:45 Room Air 21 11/21/18 07:44 Room Air 11/21/18 07:44 97 Nasal Cannula 2.0 28 11/21/18 04:00 98.3 82 20 127/78 (94) 97 11/21/18 03:32 91 20 99 Room Air 21 11/21/18 03:22 88 20 97 Room Air 21 11/21/18 00:00 98.1 88 20 140/81 (100) 97 11/20/18 22:56 Nasal Cannula 2.0 11/20/18 22:55 Nasal Cannula 2.0 28 11/20/18 21:00 Room Air 11/20/18 20:00 97.7 90 20 150/88 (108) 96 11/20/18 19:28 97 20 99 Nasal Cannula 2.0 28 11/20/18 19:21 97 Nasal Cannula 2.0 28 11/20/18 19:20 75 20 97 Nasal Cannula 2.0 28 11/20/18 16:38 98.0 87 20 146/89 (108) 94 11/20/18 15:13 Nasal Cannula 11/20/18 15:13 Nasal Cannula 11/20/18 12:11 95.4 108 16 121/96 (104) 91 11/20/18 11:34 92 20 98 Nasal Cannula 2.0 28 11/20/18 11:22 91 20 97 Nasal Cannula 2.0 28 Intake and Output 11/20/18 11/21/18 18:59 06:59 Intake Total 1405 ml 1700 ml Balance 1405 ml 1700 ml Intake Oral 600 ml 800 ml IV Total 805 ml 900 ml # Voids 4 5 General Appearance: no acute distress HEENT: normocephalic Respiratory/Chest: chest wall non-tender, decreased breath sounds Cardiovascular: normal peripheral pulses Abdomen: normal bowel sounds Current Medications Medications (Trade) Dose Ordered Sig/Sapphire Route PRN Reason Start Time Stop Time Status Last Admin Dose Admin Acetaminophen (Tylenol) 650 mg Q4H PRN ORAL For Pain 11/17/18 19:00 12/17/18 18:59 11/21/18 08:41 Albuterol/ Ipratropium (Albuterol/ Ipratropium) 3 ml Q4HRT HHN 11/16/18 23:00 11/21/18 22:59 11/21/18 03:22 Ceftriaxone Sodium 1 gm/ Dextrose 55 ml @ 110 mls/hr Q24H IVPB 11/18/18 15:00 11/25/18 14:59 11/20/18 15:06 Chlorhexidine Gluconate (Wen-Hex 2%) 1 applic DAILY@2000 TOPIC 11/18/18 20:00 12/18/18 19:59 11/20/18 21:36 Dextrose (Dextrose 50%) 25 ml Q30M PRN IV Hypoglycemia 11/17/18 01:30 12/17/18 01:29 Dextrose (Dextrose 50%) 50 ml Q30M PRN IV Hypoglycemia 11/17/18 01:30 12/17/18 01:29 Guaifenesin/ Dextromethorphan (Robitussin DM Syrup) 10 ml Q4H PRN ORAL For Cough 11/19/18 09:00 12/19/18 08:59 11/20/18 23:48 Heparin Sodium (Porcine) (Heparin 5000 units/ml) 5,000 units EVERY 12 HOURS SUBQ 11/18/18 09:00 12/18/18 08:59 11/21/18 08:37 Insulin Aspart (NovoLOG) BEFORE MEALS AND HS SUBQ 11/17/18 06:30 12/17/18 06:29 11/20/18 21:41 Iopamidol (Isovue-370 150ml) 150 ml NOW PRN INJ Radiology Procedure 11/19/18 19:45 11/21/18 19:45 Methylprednisolone Sodium Succinate (Solu-MEDROL) 40 mg DAILY IVP 11/20/18 09:00 12/20/18 08:59 11/21/18 08:36 Pantoprazole (Protonix) 40 mg DAILY ORAL 11/20/18 09:00 12/20/18 08:59 11/21/18 08:36 Sodium Chloride 1,000 ml @ 75 mls/hr [id number] IV 11/19/18 19:45 12/19/18 19:44 11/20/18 21:35 Edenilson Laird MD Nov 21, 2018 09:45
[2018-11-21 12:00] VITALS: BP 141/90
[2018-11-21] MEDS: cefTRIAXone 1 GM in D5W 55 ML IVPB SCH (15:21)
[2018-11-21 16:00] VITALS: BP 120/80
[2018-11-21 20:00] VITALS: BP 121/86
[2018-11-21] MEDS: Dyna-Hex 2% Top Sol 2oz TOPIC SCH (20:13)
[2018-11-22] VITALS: BP 124/82
--- NOTE | 2018-11-22 03:15 | Progress Note ---
DATE: 11/21/2018 CARDIOLOGY PROGRESS AND INTERNAL MEDICINE PROGRESS NOTE SUBJECTIVE: No new complaints. Still short of breath. CAT scan of the chest pending due to machine malfunction. OBJECTIVE: VITAL SIGNS: Blood pressure 121/86, heart rate 100, and respirations 19. Afebrile. LUNGS: With diminished breath sounds. No wheezing. HEART: Regular rhythm and rate. Normal S1, S2. ABDOMEN: Soft. EXTREMITIES: No edema. IMPRESSION: 1. Dyspnea. 2. Chronic obstructive pulmonary disease. 3. Sinus tachycardia. 4. Resolved lactic acidosis. 5. Type 2 diabetes mellitus. PLAN: 1. No resumption of metformin. 2. Await CT of the chest. 3. Steroid taper. 4. Inhaled bronchodilators. Lee Martin M.D. DR: CHEYENNE JOB#: [id number] CC:
[2018-11-22] MEDS: Albuterol/Ipratropium 3ml neb HHN SCH ×6 (03:40→22:54)
[2018-11-22 04:00] VITALS: BP 119/75
[2018-11-22] MEDS: NovoLOG Insulin Flexpen SUBQ SCH ×4 (06:30→20:05)
[2018-11-22 08:00] VITALS: BP 122/73
[2018-11-22] MEDS: Solu-MEDROL 40mg Inj IVP SCH (08:10)
[2018-11-22] MEDS: Heparin 5000 units/ml inj SUBQ SCH ×2 (08:13→20:42)
--- NOTE | 2018-11-22 10:31 | Pulmonology Progress Note ---
Assessment/Plan Assessment/Plan 1. Lactic acidemia. Improved 2. Exacerbation of COPD. 3. Diabetes mellitus. PLAN: Continue current medications and care. Continue fluids and breathing treatments. I will follow carefully. Seen by nephrology. Taper steroids Subjective Interval Events: None new Constitutional: Reports: no symptoms HEENT: Repors: no symptoms Respiratory: Reports: no symptoms Cardiovascular: Reports: no symptoms Gastrointestinal/Abdominal: Reports: no symptoms Allergies: Coded Allergies: No Known Allergies (Unverified , 11/16/18) Objective Last 24 Hour Vital Signs Date Time Temp Pulse Resp B/P (MAP) Pulse Ox O2 Delivery O2 Flow Rate FiO2 11/22/18 08:00 98.7 95 18 122/73 (89) 97 11/22/18 06:59 Room Air 21 11/22/18 06:59 95 Room Air 21 11/22/18 06:59 Room Air 21 11/22/18 04:00 98.3 92 18 119/75 (90) 11/22/18 03:48 110 20 98 Room Air 21 11/22/18 03:40 93 20 92 Room Air 21 11/22/18 00:00 98.7 116 18 124/82 (96) 11/21/18 23:31 Room Air 21 11/21/18 23:31 Room Air 21 11/21/18 21:00 Room Air 11/21/18 20:26 Room Air 21 11/21/18 20:26 Room Air 21 11/21/18 20:26 100 22 93 Room Air 21 11/21/18 20:26 93 Room Air 21 11/21/18 20:00 98.9 100 19 121/86 (98) 11/21/18 16:00 98.2 96 18 120/80 (93) 95 11/21/18 14:46 97 20 99 Room Air 21 11/21/18 14:41 98 20 96 Room Air 21 11/21/18 12:00 98.5 94 18 141/90 (107) 94 11/21/18 11:13 Room Air 21 11/21/18 11:13 Room Air 21 Intake and Output 11/21/18 11/22/18 19:00 07:00 Intake Total 1380 ml 480 ml Balance 1380 ml 480 ml Intake Oral 480 ml 480 ml IV Total 900 ml # Voids 4 2 General Appearance: no acute distress HEENT: normocephalic Respiratory/Chest: chest wall non-tender, lungs clear Cardiovascular: normal peripheral pulses, normal rate Abdomen: normal bowel sounds Current Medications Medications (Trade) Dose Ordered Sig/Sapphire Route PRN Reason Start Time Stop Time Status Last Admin Dose Admin Acetaminophen (Tylenol) 650 mg Q4H PRN ORAL For Pain 11/17/18 19:00 12/17/18 18:59 11/22/18 08:11 Albuterol/ Ipratropium (Albuterol/ Ipratropium) 3 ml Q4HRT HHN 11/22/18 03:00 11/27/18 02:59 11/22/18 03:40 Ceftriaxone Sodium 1 gm/ Dextrose 55 ml @ 110 mls/hr Q24H IVPB 11/18/18 15:00 11/25/18 14:59 11/21/18 15:21 Chlorhexidine Gluconate (Wen-Hex 2%) 1 applic DAILY@2000 TOPIC 11/18/18 20:00 12/18/18 19:59 11/21/18 20:13 Dextrose (Dextrose 50%) 25 ml Q30M PRN IV Hypoglycemia 11/17/18 01:30 12/17/18 01:29 Dextrose (Dextrose 50%) 50 ml Q30M PRN IV Hypoglycemia 11/17/18 01:30 12/17/18 01:29 Guaifenesin/ Dextromethorphan (Robitussin DM Syrup) 10 ml Q4H PRN ORAL For Cough 11/19/18 09:00 12/19/18 08:59 11/20/18 23:48 Heparin Sodium (Porcine) (Heparin 5000 units/ml) 5,000 units EVERY 12 HOURS SUBQ 11/18/18 09:00 12/18/18 08:59 11/22/18 08:13 Insulin Aspart (NovoLOG) BEFORE MEALS AND HS SUBQ 11/17/18 06:30 12/17/18 06:29 11/21/18 20:42 Methylprednisolone Sodium Succinate (Solu-MEDROL) 40 mg DAILY IVP 11/20/18 09:00 12/20/18 08:59 11/22/18 08:10 Pantoprazole (Protonix) 40 mg DAILY ORAL 11/20/18 09:00 12/20/18 08:59 11/22/18 08:10 Sodium Chloride 1,000 ml @ 75 mls/hr [id number] IV 11/19/18 19:45 12/19/18 19:44 11/22/18 00:39 Edenilson Laird MD Nov 22, 2018 10:31
--- NOTE | 2018-11-22 11:17 | Diagnostic Imaging Report ---
Indication: Chest pain Technique: Continuous helical transaxial imaging of the chest was obtained from the thoracic inlet to the upper abdomen during rapid intravenous contrast administration. Arterial phase of enhancement obtained. Coronal 2-D reformats were also obtained and maximum intensity projection images in multiple planes. Study obtained in a Siemens sensation [address] Automatic Exposure Control was utilized. Total Dose length Product (DLP): 795.[address] Dose Index Volume (CTDIvol): 21.81 mGy Comparison: None Findings: The pulmonary artery is well opacified and shows no filling defects. There is no adenopathy, pleural or pericardial effusions are identified. There is no aortic dissection or aneurysm identified within the chest. Minimal mural calcium noted within the aorta consistent with atherosclerotic disease. Patchy areas of lucency are noted in the upper lobes consistent with emphysema. Streaky coarse linear densities noted within the lung parenchyma both lung bases probably atelectasis or scarring. The visualized part of the upper abdomen shows some reflux contrast into the IVC and is otherwise unremarkable. IMPRESSION: No evidence of pulmonary embolus, aortic dissection or aneurysm. COPD/emphysema. Basilar scarring versus atelectasis Atherosclerotic disease. The CT scanner at [facility] is accredited by the [employer] and the scans are performed using dose optimization techniques as appropriate to a performed exam including Automatic Exposure control.
[2018-11-22 12:00] VITALS: BP 129/78
[2018-11-22] MEDS: cefTRIAXone 1 GM in D5W 55 ML IVPB SCH (14:54)
[2018-11-22 16:00] VITALS: BP 125/80
[2018-11-22] MEDS: Guaifenesin/DM 10ml syrup ORAL PRN (17:48)
[2018-11-22 20:00] VITALS: BP 108/77
[2018-11-22] MEDS: Dyna-Hex 2% Top Sol 2oz TOPIC SCH (20:00)
[2018-11-23] VITALS: BP 113/74
[2018-11-23] MEDS: Albuterol/Ipratropium 3ml neb HHN SCH ×4 (03:00→15:26)
--- NOTE | 2018-11-23 03:30 | Progress Note ---
DATE: 11/23/2018 CARDIOLOGY PROGRESS NOTE SUBJECTIVE: CAT scan is reviewed. Scarring, but no other process noted. OBJECTIVE: VITAL SIGNS: Blood pressure is 119/75, pulse 92, respiratory rate 18, and afebrile. LUNGS: Diminished breath sounds. HEART: Regular rhythm and rate. Normal S1, S2. ABDOMEN: Soft. EXTREMITIES: No edema. IMPRESSION: 1. Chronic obstructive pulmonary disease exacerbation. 2. Resolved lactic acidosis. 3. Paroxysmal bronchospasm. 4. Pulmonary hypertension. 5. Secondary sinus tachycardia. 6. Urinary tract infection. PLAN: 1. Discontinue intravenous antibiotics. 2. Oral steroids with further taper as outpatient. 3. Start glimepiride for diabetes. 4. No resumption of metformin. 5. Discharge plan. Lee Martin M.D. DR: CHEYENNE JOB#: [id number] CC:
[2018-11-23 04:00] VITALS: BP_SYST 113; BP_SYST 120; BP_DIAS 74; BP_DIAS 86
[2018-11-23] MEDS: NovoLOG Insulin Flexpen SUBQ SCH ×3 (05:58→16:30)
[2018-11-23] MEDS ORDERED: Glimepiride 1mg tab ORAL SCH (06:30)
[2018-11-23 08:00] VITALS: BP 114/82
[2018-11-23] MEDS: Heparin 5000 units/ml inj SUBQ SCH (08:20)
--- NOTE | 2018-11-23 09:46 | Pulmonology Progress Note ---
Assessment/Plan Assessment/Plan 1. Lactic acidemia. Improved 2. Exacerbation of COPD. 3. Diabetes mellitus. PLAN: Continue current medications and care. Continue fluids and breathing treatments. I will follow carefully. Seen by nephrology. Taper steroids Subjective Interval Events: None new Constitutional: Reports: no symptoms HEENT: Repors: no symptoms Respiratory: Reports: no symptoms Cardiovascular: Reports: no symptoms Gastrointestinal/Abdominal: Reports: no symptoms Genitourinary: Reports: no symptoms Allergies: Coded Allergies: No Known Allergies (Unverified , 11/16/18) Objective Last 24 Hour Vital Signs Date Time Temp Pulse Resp B/P (MAP) Pulse Ox O2 Delivery O2 Flow Rate FiO2 11/23/18 08:00 97.8 128 20 114/82 (93) 96 11/23/18 06:58 110 18 98 Room Air 11/23/18 06:47 108 18 96 Room Air 11/23/18 06:47 97 Room Air 11/23/18 04:00 98.3 111 16 120/86 (97) 93 11/23/18 03:00 Room Air 21 11/23/18 03:00 Room Air 21 11/23/18 00:00 98.2 118 17 113/74 (87) 97 11/22/18 23:04 89 20 95 Room Air 11/22/18 22:54 98 18 94 Room Air 21 11/22/18 21:00 Room Air 11/22/18 20:05 95 Room Air 11/22/18 20:05 115 22 95 Room Air 21 11/22/18 20:05 Room Air 21 11/22/18 20:00 98.0 116 18 108/77 (87) 95 11/22/18 16:00 98.3 91 20 125/80 (95) 97 11/22/18 14:20 101 20 99 Room Air 21 11/22/18 14:13 100 20 95 Room Air 21 11/22/18 12:00 98.5 97 18 129/78 (95) 98 11/22/18 10:48 Room Air 21 11/22/18 10:48 Room Air 21 Intake and Output 11/22/18 11/23/18 19:00 07:00 Intake Total 1690 ml 480 ml Balance 1690 ml 480 ml Intake Oral 1240 ml 480 ml IV Total 450 ml # Voids 6 3 # Bowel Movements 1 General Appearance: no acute distress HEENT: normocephalic Respiratory/Chest: chest wall non-tender Cardiovascular: normal peripheral pulses Abdomen: normal bowel sounds Current Medications Medications (Trade) Dose Ordered Sig/Sapphire Route PRN Reason Start Time Stop Time Status Last Admin Dose Admin Acetaminophen (Tylenol) 650 mg Q4H PRN ORAL For Pain 11/17/18 19:00 12/17/18 18:59 11/23/18 05:58 Albuterol/ Ipratropium (Albuterol/ Ipratropium) 3 ml Q4HRT HHN 11/22/18 03:00 11/27/18 02:59 11/23/18 06:47 Chlorhexidine Gluconate (Wen-Hex 2%) 1 applic DAILY@1999 TOPIC 11/18/18 20:00 12/18/18 19:59 11/21/18 20:13 Dextrose (Dextrose 50%) 25 ml Q30M PRN IV Hypoglycemia 11/17/18 01:30 12/17/18 01:29 Dextrose (Dextrose 50%) 50 ml Q30M PRN IV Hypoglycemia 11/17/18 01:30 12/17/18 01:29 Glimepiride (Amaryl) 2 mg ACBREAKFAST ORAL 11/23/18 06:30 12/23/18 06:29 11/23/18 05:57 Guaifenesin/ Dextromethorphan (Robitussin DM Syrup) 10 ml Q4H PRN ORAL For Cough 11/19/18 09:00 12/19/18 08:59 11/22/18 17:48 Heparin Sodium (Porcine) (Heparin 5000 units/ml) 5,000 units EVERY 12 HOURS SUBQ 11/18/18 09:00 12/18/18 08:59 11/23/18 08:20 Insulin Aspart (NovoLOG) BEFORE MEALS AND HS SUBQ 11/17/18 06:30 12/17/18 06:29 11/22/18 20:05 Pantoprazole (Protonix) 40 mg DAILY ORAL 11/20/18 09:00 12/20/18 08:59 11/23/18 08:19 Prednisone (predniSONE) 20 mg DAILY ORAL 11/23/18 09:00 12/23/18 08:59 11/23/18 08:19 Edenilson Laird MD Nov 23, 2018 09:46
[2018-11-23 12:46] VITALS: BP 123/94
[2018-11-23 16:00] VITALS: BP 132/89
[2018-11-23] MEDS ORDERED: AMARYL1 MG ORAL (16:29)
[2018-11-23] MEDS ORDERED: GUAIFENESI100 MG/5 M ORAL (16:30)
[2018-11-23] MEDS ORDERED: PANTOPRAZOLE SO40 MG ORAL (16:32)
--- NOTE | 2018-11-24 12:49 | Discharge Summary ---
Discharge Summary Discharge Summary _ DATE OF ADMISSION: 11/16/2018 DATE OF DISCHARGE: 11/23/2018 DISCHARGED BY: Dr. Lee Martin CONSULTANTS: Dr. Yue Boudreaux BRIEF HOSPITAL COURSE: Patient is a 67-year-old -Chinese female, with 2 weeks of progressive cough, with yellow-green sputum production and shortness of breath. She was treated with oral therapy, but failed to improved. She was not able to catch her breath for the previous day, wheezing was nonstop, and she was unable to lie flat. She was seen in the clinic and was referred to go to emergency room because of failure to improve. Past medical history significant for hypertension, COPD, type 2 diabetes mellitus and peripheral artery disease. On evaluation at the ED, O2 saturation was 91% on room air. Blood work did not show any leukocytosis. Hemoglobin and hematocrit were stable. Electrolytes were normal. Lactate was elevated to 2.8. Troponins are negative. Chest x- ray showed hyperinflated lungs with no infiltrates. She was started on IV antibiotics. She was given nebulizer treatment. She was then admitted for evaluation of COPD exacerbation. Soda Fountain Manager was consulted. She was given IV steroids. She was placed on inhaled bronchodilators. She was continued empirically on IV ceftriaxone. Blood glucose was monitored. She was placed on insulin sliding scale. Metformin was placed on hold. She was given IV hydration. Patient had poor IV access. She had worsening lactic acidemia. Urine toxicology was negative. Caustic Liquor Maker was consulted. Patient had elevated lactic acid but clinically did not appear to be septic. Elevated lactate possibly falls positive due to patient taking metformin at home. He was continued on IV hydration. Continue to hold off on metformin. Acidosis eventually resolved. A PICC line was eventually placed. She was improving slowly. CT of the chest was negative for PE, aortic dissection or aneurysm. There were COPD/emphysematous changes seen and scarring. Urine culture showed growth of E. coli. Patient was cleared for discharge. To continue oral steroids with further taper as outpatient. No plans for resumption of metformin. She was started on glimepiride. PICC line was discontinued. FINAL DIAGNOSES: COPD exacerbation Resolved lactic acidosis Paroxysmal bronchospasm Pulmonary hypertension Secondary sinus tachycardia Urinary tract infection Type 2 diabetes mellitus DISPOSITION: [place] home. DISCHARGE MEDICATIONS: Refer to Discharge Medication List. DISCHARGE INSTRUCTIONS: Follow-up on 12/06/2018 at 2 PM. I have been assigned to complete a discharge summary on this account, I was not involved with the patient's management. Taylor Whitlock NP Nov 24, 2018 12:49
== END 2018-11-23 17:44 | disposition home or self-care (01) | DRG 140 ==
LOC: EMR 17:22 → 4E 17:34 → EDBEDREQTM 18:51 → EDBEDREQSVC 18:51 → EDBEDREQ 20:06
PROC: 02HV33Z Insertion of Infusion Device into Superior Vena Cava, Percutaneous Approach (ICD-10-PCS; principal; 2018-11-18)
DX: J44.1 Chronic obstructive pulmonary disease with (acute) exacerbation (principal); E87.2 Acidosis; I27.20 Pulmonary hypertension, unspecified; E11.65 Type 2 diabetes mellitus with hyperglycemia; N39.0 Urinary tract infection, site not specified; E11.9 Type 2 diabetes mellitus without complications; B96.20 Unspecified Escherichia coli [E. coli] as the cause of diseases classified elsewhere; M62.82 Rhabdomyolysis; I10 Essential (primary) hypertension; I73.9 Peripheral vascular disease, unspecified; Z87.891 Personal history of nicotine dependence; R09.02 Hypoxemia; I49.3 Ventricular premature depolarization; J98.01 Acute bronchospasm; R00.0 Tachycardia, unspecified; Z79.4 Long term (current) use of insulin
CPT/HCPCS: 36415; 36569; 71045; 71275; 76937; 80053; 80307; 81001; 81003; 82043; 82550; 82553; 82962; 83605; 83880; 84443; 84484; 85025; 87040; 87086; 87181; 93005; 94640; 94664; 96365; 96375; 99285; J1815; J7620

== ENCOUNTER 2019-01-25 15:13 | Inpatient (IN) | payer MEDICARE, OTHER ==
[~2019-01-25] VITALS: Ht 165.1 cm; Wt 72.6 kg
[~2019-01-25 15:13] MED LIST: AMARYL1 MG ORAL; ANORO ELLIPTA1 EACH; BREO ELLIPTA 11 EACH IH; GUAIFENESI100 MG/5 M ORAL; METFORMIN HCL500 M1 ORAL; PANTOPRAZOLE SO40 MG ORAL; VENTOLIN HFA18 GM INH
[2019-01-25] MEDS ORDERED: Solu-MEDROL 125mg Inj IVP ONE (15:15)
[2019-01-25 15:16] VITALS: BP 141/107
--- NOTE | 2019-01-25 15:16 | NUR ---
ED Nurse Note: Pt brought in by EMS due to SOB after stress test today at his PCP clinic. Referred by Dr Martin. Hx of COPD. Albuterol 5mg provided by EMS en route. AAO x4, follows commands with SOB at rest. Wheezing auscultated.
[2019-01-25] MEDS: Ipratropium 0.02% Inh Soln 2.5ml UD HHN SCH ×2 (15:21→15:22)
[2019-01-25] MEDS: Albuterol ud Inhalation HHN SCH ×2 (15:21→15:22)
--- NOTE | 2019-01-25 15:39 | Emergency Room Report ---
History of Present Illness General Chief Complaint: Dyspnea/Respdistress Source: Patient, EMS Present Illness HPI 68-year-old female presents ED for evaluation. Brought in by EMS for COPD exacerbation. Was at doctor's office today where she was receiving a stress test. States she is minutes after starting the stress test she began wheezing profusely. History of COPD. Was started on breathing treatments. States that she feels somewhat better but still feels short of breath. Denies chest pain. Denies fevers or chills. States that she has had similar reactions in the past to stress test. No other aggravating relieving factors. Denies any other associated symptoms Allergies: Coded Allergies: No Known Allergies (Unverified , 11/16/18) Patient History Past Medical History: DM, HTN, asthma, COPD Past Surgical History: none Pertinent Family History: none Social History: Denies: smoking, alcohol use, drug use Now: No Immunizations: UTD Reviewed Nursing Documentation: PMH: Agreed; PSxH: Agreed Nursing Documentation-PMH Hx Hypertension: Yes Hx Asthma: Yes Hx COPD: Yes Hx Diabetes: Yes Review of Systems All Other Systems: negative except mentioned in HPI Physical Exam Vital Signs Date Time Temp Pulse Resp B/P (MAP) Pulse Ox O2 Delivery O2 Flow Rate FiO2 01/25/19 15:06 98.1 92 20 161/99 (119) 99 Non-Rebreather 01/25/19 15:25 21 Sp02 EP Interpretation: reviewed, normal General Appearance: no apparent distress, alert, GCS 15, non-toxic Head: normocephalic, atraumatic Eyes: bilateral eye normal inspection, bilateral eye PERRL ENT: hearing grossly normal, normal pharynx, no angioedema, normal voice Neck: full range of motion, supple/symm/no masses Respiratory: chest non-tender, normal breath sounds, speaking full sentences, wheezing Cardiovascular #1: regular rate, rhythm, no edema Cardiovascular #2: 2+ carotid (R), 2+ carotid (L), 2+ radial (R), 2+ radial (L) , 2+ dorsalis pedis (R), 2+ dorsalis pedis (L) Gastrointestinal: normal bowel sounds, non tender, soft, non-distended, no guarding, no rebound Rectal: deferred Genitourinary: normal inspection, no CVA tenderness Musculoskeletal: back normal, gait/station normal, normal range of motion, non- tender Neurologic: alert, oriented x3, responsive, motor strength/tone normal, sensory intact, speech normal Psychiatric: judgement/insight normal, memory normal, mood/affect normal, no suicidal/homicidal ideation Reflexes: 3+ bicep (R), 3+ bicep (L), 3+ tricep (R), 3+ tricep (L), 3+ knee (R) , 3+ knee (L) Lymphatic: no adenopathy Medical Decision Making Diagnostic Impression: Primary Impression: COPD exacerbation ER Course Hospital Course 68-year-old F presenting to ED with wheezing after stress test today. h/o COPD Differential diagnoses include: Pneumonia, CHF exacerbation, pneumothorax, fluid overload Clinical course Patient placed on stretcher. On hall monitor with stable vitals. After initial history and physical, I ordered nebulizer treatments. I ordered labs, IV fluids, EKG, chest x-ray, solumedrol Has difficult IV access. Only gets PICC line. PICC line ordered and placed. Labs - no leukocytosis noted, hemoglobin/hematocrit stable, electrolytes okay, lactate okay, troponins negative CXR - hyperinflated lungs. no infiltrates EKG - NSR, no acute ischemic changes interpreted by me abx given. Case discussed with Dr. Sharif and he agreed to the patient to his service for further care and support I feel this is a highly complex case requiring extensive working including EKG/ Rhythm strip, Xray/CT/US, Blood/urine lab work, repeat exams while in ED, and administration of strong opiates/narcotics for pain control, admission to hospital or close patient follow up. Diagnosis - COPD exacerbation Patient admitted to telemetry in serious condition Labs Test 01/25/19 16:50 01/25/19 17:15 White Blood Count 7.9 K/UL (4.8-10.8) Red Blood Count 4.62 M/UL (4.20-5.40) Hemoglobin 14.2 G/DL (12.0-16.0) Hematocrit 41.2 % (37.0-47.0) Mean Corpuscular Volume 89 FL (80-99) Mean Corpuscular Hemoglobin 30.8 PG (27.0-31.0) Mean Corpuscular Hemoglobin Concent 34.5 G/DL (32.0-36.0) Red Cell Distribution Width 11.7 % (11.6-14.8) Platelet Count 314 K/UL (150-450) Mean Platelet Volume 6.7 FL (6.5-10.1) Neutrophils (%) (Auto) 55.6 % (45.0-75.0) Lymphocytes (%) (Auto) 28.1 % (20.0-45.0) Monocytes (%) (Auto) 10.9 % (1.0-10.0) Eosinophils (%) (Auto) 2.3 % (0.0-3.0) Basophils (%) (Auto) 3.1 % (0.0-2.0) Sodium Level 139 MMOL/L (136-145) Potassium Level 3.6 MMOL/L (3.5-5.1) Chloride Level 104 MMOL/L (98-107) Carbon Dioxide Level 24 MMOL/L (21-32) Anion Gap 12 mmol/L (5-15) Blood Urea Nitrogen 14 mg/dL (7-18) Creatinine 0.9 MG/DL (0.55-1.30) Estimat Glomerular Filtration Rate > 60 mL/min (>60) Glucose Level 104 MG/DL (74-106) Lactic Acid Level 1.50 mmol/L (0.4-2.0) Calcium Level 9.4 MG/DL (8.5-10.1) Total Bilirubin 0.4 MG/DL (0.2-1.0) Aspartate Amino Transf (AST/SGOT) 18 U/L (15-37) Alanine Aminotransferase (ALT/SGPT) 14 U/L (12-78) Alkaline Phosphatase 57 U/L (46-116) Total Creatine Kinase 201 U/L (26-308) Creatine Kinase MB 3.4 NG/ML (0.0-3.6) Creatine Kinase MB Relative Index 1.6 Troponin I 0.000 ng/mL (0.000-0.056) Pro-B-Type Natriuretic Peptide 36 pg/mL (0-125) Total Protein 7.9 G/DL (6.4-8.2) Albumin 3.8 G/DL (3.4-5.0) Globulin 4.1 g/dL Albumin/Globulin Ratio 0.9 (1.0-2.7) Urine Color Pale yellow Urine Appearance Clear Urine pH 6.5 (4.5-8.0) Urine Specific [place] 1.010 (1.005-1.035) Urine Protein 2+ (NEGATIVE) Urine Glucose (UA) Negative (NEGATIVE) Urine Ketones Negative (NEGATIVE) Urine Blood Negative (NEGATIVE) Urine Nitrite Negative (NEGATIVE) Urine Bilirubin Negative (NEGATIVE) Urine Urobilinogen Normal MG/DL (0.0-1.0) Urine Leukocyte Esterase Negative (NEGATIVE) Urine RBC 0-2 /HPF (0 - 2) Urine WBC 0-2 /HPF (0 - 2) Urine Squamous Epithelial Cells Few /LPF (NONE/OCC) Urine Bacteria Few /HPF (NONE) EKG Diagnostic Results Rate: tachycardiac Rhythm: NSR ST Segments: no acute changes ASA given to the pt in ED: No Rhythm Strip Diag. Results EP Interpretation: yes Rhythm: NSR, no PVC's, no ectopy Chest X-Ray Diagnostic Results Chest X-Ray Diagnostic Results : Chest X-Ray Ordered: Yes # of Views/Limited/Complete: 1 View Indication: Shortness of Breath EP Interpretation: Yes Interpretation: no consolidation, no effusion, no pneumothorax, no acute cardiopulmonary disease Impression: No acute disease Electronically Signed by: Electronically signed by Pedro Leal MD Last Vital Signs Date Time Temp Pulse Resp B/P (MAP) Pulse Ox O2 Delivery O2 Flow Rate FiO2 01/25/19 15:25 90 22 100 Room Air 21 01/25/19 15:06 98.1 161/99 (119) Status: improved Disposition: ADMITTED INPATIENT Condition: Serious Pedro Leal MD Jan 25, 2019 15:39
--- NOTE | 2019-01-25 15:45 | NUR ---
ED Nurse Note: Multiple RNs unable to insert IV cath. Charge nurse and Dr Leal made aware. Lab called for blood draw.
[2019-01-25] MEDS ORDERED: Heparin1,000 units/500ml Premix(Conc:2 units/ml) IV ONE (16:15)
[2019-01-25] MEDS ORDERED: Lidocaine 1% Plain 30 ml INJ ONE (16:15)
--- NOTE | 2019-01-25 16:15 | NUR ---
ED Nurse Note: Consent for PICC line insertion signed by pt. Radiologist at the bed side for procedure.
--- NOTE | 2019-01-25 16:35 | Diagnostic Imaging Report ---
Indication: Dyspnea Comparison: 11/16/2018 A single view chest radiograph was obtained. Findings: No definite infiltrate or pulmonary vascular congestion identified. The heart is enlarged. The aorta is mildly enlarged consistent with atherosclerotic vascular disease. The bones are osteopenic. Impression: No acute disease
[2019-01-25 17:12] LABS: BASOPHILS % (AUTO) 3.1 % (0.0-2.0); EOSINOPHILS % (AUTO) 2.3 % (0.0-3.0); HEMATOCRIT 41.2 % (37.0-47.0); HEMOGLOBIN 14.2 G/DL (12.0-16.0); LYMPHOCYTES % (AUTO) 28.1 % (20.0-45.0); MEAN CORPUSCULAR VOLUME 89 FL (80-99); MONOCYTES % (AUTO) 10.9 % (1.0-10.0); NEUTROPHILS % (AUTO) 55.6 % (45.0-75.0); PLATELET COUNT 314 K/UL (150-450); RED BLOOD COUNT 4.62 M/UL (4.20-5.40); RED CELL DISTRIBUTION WIDTH 11.7 % (11.6-14.8); WHITE BLOOD COUNT 7.9 K/UL (4.8-10.8)
[2019-01-25 17:23] VITALS: BP 138/99
[2019-01-25 17:30] LABS: ANION GAP 12 mmol/L (5-15); BLOOD UREA NITROGEN 14 mg/dL (7-18); CALCIUM 9.4 MG/DL (8.5-10.1); CARBON DIOXIDE 24 MMOL/L (21-32); CHLORIDE 104 MMOL/L (98-107); CREATININE 0.9 MG/DL (0.55-1.30); POTASSIUM 3.6 MMOL/L (3.5-5.1); SODIUM 139 MMOL/L (136-145)
[2019-01-25 17:43] LABS: ALANINE AMINOTRANSFERASE 14 U/L (12-78); ALBUMIN 3.8 G/DL (3.4-5.0); ALBUMIN/GLOBULIN RATIO 0.9 (1.0-2.7); ALKALINE PHOSPHATASE 57 U/L (46-116); ASPARTATE AMINO TRANSFERASE 18 U/L (15-37); BILIRUBIN,TOTAL 0.4 MG/DL (0.2-1.0); CKMB 3.4 NG/ML (0.0-3.6); CREATINE KINASE 201 U/L (26-308)
[2019-01-25 17:44] LABS: APPEARANCE,URINE CLEAR; BILIRUBIN, URINE NEGATIVE (NEGATIVE); COLOR,URINE PALE YELLOW; GLUCOSE, URINE (UA) NEGATIVE (NEGATIVE); KETONES,URINE NEGATIVE (NEGATIVE); LEUKOCYTE ESTERASE ,URINE NEGATIVE (NEGATIVE); NITRITE,URINE NEGATIVE (NEGATIVE); PH,URINE 6.5 (4.5-8.0); PROTEIN,URINE 2+ (NEGATIVE); UROBILINOGEN,URINE NORMAL MG/DL (0.0-1.0)
--- NOTE | 2019-01-25 18:02 | NUR ---
ED Nurse Note: Report given to Raiza COOK of telemetry unit.
[2019-01-25 18:15] VITALS: BP 147/87
--- NOTE | 2019-01-25 18:15 | NUR ---
NURSE NOTES: Patient was transferred to from ER by rai with JOYCE Wilson. Patient is appearing with SOB, respiratory distress. AO x4. Denies pain, just complained of difficulty breathing. I told her to take slower breath, breath in to her nose, out her mouth. Belonging list went over with patient and Katie, ER nurse at bed side. campus monitor is applied on, bed at lowest position, call light within reach, break engaged. PICC line is on Left UA, running medication, no s/s/s bleeding, patent, asymptomatic. VS: temp 96.3, O2 95%, BP 147/87, RR 23, TN, 115. Dr. Crawford already put in admission orders in. Orders acknowledged and carried out.
--- NOTE | 2019-01-25 19:15 | NUR ---
HAND-OFF: Report given to JOYCE Fonseca.
--- NOTE | 2019-01-25 19:20 | NUR ---
NURSE NOTES: Received pt. awake in no acute distress and eating her dinner tray. Denies sob at this time. Call light in reach and bed at its lowest position.
[2019-01-25] MEDS: Albuterol/Ipratropium 3ml neb HHN SCH ×2 (19:55→23:38)
[2019-01-25] MEDS: Heparin 5000 units/ml inj SUBQ SCH (21:06)
[2019-01-25] MEDS: NovoLOG Insulin Flexpen SUBQ SCH (21:08)
[2019-01-25] MEDS: Solu-MEDROL 40mg Inj IVP SCH (22:35)
[2019-01-26 00:13] VITALS: BP 137/82
[2019-01-26] MEDS: Dyna-Hex 2% Top Sol 2oz TOPIC SCH ×2 (00:59→19:56)
--- NOTE | 2019-01-26 02:50 | NUR ---
NURSE NOTES: ASSUMED CARE OF PATIENT AT THIS TIME. PATIENT ASLEEP. CALL LIGHT AND BEDSIDE TABLE WITHIN REACH, BED IN LOW POSITION. WILL CONTINUE WITH PLAN OF CARE.
--- NOTE | 2019-01-26 02:53 | NUR ---
rEPORT GIVEN TO JONA COOK. PATIENT STABLE AT THIS TIME.
[2019-01-26] MEDS: Albuterol/Ipratropium 3ml neb HHN SCH ×6 (03:23→23:38)
[2019-01-26 04:00] VITALS: BP 127/83
--- NOTE | 2019-01-26 04:00 | Consultation ---
DATE OF CONSULTATION: 01/25/2019 CARDIOLOGY CONSULTATION CONSULTING PHYSICIAN: Lee Martin M.D. REQUESTING PHYSICIAN: Micheal Sharif M.D. REASON FOR ADMISSION: Acute respiratory distress. HISTORY OF PRESENT ILLNESS: This 68-year-old female with in my office for routine evaluation. She has been on steroids for COPD in the past, but those were discontinued about a month ago. She once being tested for exercise capacity on a treadmill, but walked less than 30 seconds when she began wheezing profusely and felt extremely short of breath. She could not catch her breath and did not improve and when subcostal retractions were noted, paramedics were summoned to bring her to the hospital. The patient did not have any chest pain and she was monitored throughout the episode with sinus tachycardia and occasional PVC's seen, but no ST-T changes or signs of ischemia. Wall motion of the ventricle was concomitantly performed that revealed normal ejection fraction and contractility. PAST MEDICAL HISTORY: Notable for COPD, hypertensive heart disease, type 2 diabetes mellitus, degenerative disk disease, osteoarthritis, diabetic neuropathy, chronic kidney disease, and history of lactic acidemia. MEDICATIONS: Prior to admission include amlodipine 10 daily, oral inhaler daily, Ventolin inhaler as needed, Singulair 10 mg daily, Breo inhaler 10/200 twice a day, Protonix 40 daily, and glimepiride 2 mg daily. ALLERGIES: Metformin causing lactic acidosis. FAMILY HISTORY: Noncontributory. SOCIAL HISTORY: Greater than 28-[id number] smoker, history of substance abuse in the distant past. She is not an active smoker at this time. There is no history of alcohol abuse. REVIEW OF SYSTEMS: No loss of vision, hearing, or headaches. No history of sinus tenderness. Her exercise capacity is quite poor due to shortness of breath. There is no history of abnormal blood clotting. As noted, her baseline echocardiogram revealed normal ejection fraction with no significant pulmonary hypertension. There is no history of seizure or stroke. She is on oral diabetic therapy. She was hospitalized here 2 months ago with lactic acidosis and had been on metformin at that time. There is no history of thyroid impairment. She has not had any change in bowel habits. There is no recent colonoscopy performed. She denies frequency or dysuria. PHYSICAL EXAMINATION: VITAL SIGNS: Blood pressure 138/99, heart rate 79, respiratory rate 20, presently afebrile, and oxygen saturation on room air 99%. On arrival to the emergency room, her blood pressure was 161/99 with a heart rate of 92 and a respiratory rate of 20. HEENT: Conjunctiva pink. Sclerae are anicteric. Oropharynx clear. Mucous membranes moist. No thrush. NECK: Supple. Jugular venous pressure normal. No accessory muscle use. LUNGS: With severely diminished breath sounds. Few wheezes. No rales. CARDIAC: Regular rhythm and rate. Normal S1, S2 with a fourth heart sound. No murmur. ABDOMEN: Soft. Nontender. EXTREMITIES: Good pulses. No edema. NEUROLOGIC: Nonfocal. LABORATORY DATA: White count 7.9 and hemoglobin 14.2. Lactic acid 1.5. Troponin 0. BUN 14 and creatinine 0.9. Potassium 3.6 and albumin is 3.8. IMPRESSION: 1. Acute bronchospasm. 2. COPD with acute exacerbation. 3. Hypertensive heart disease with labile blood pressure. 4. Type 2 diabetes mellitus. 5. History of metformin-associated lactic acidosis. PLAN: 1. Intravenous steroids. 2. Inhaled bronchodilators. 3. Titration of antihypertensives. 4. Insulin coverage by sliding scale. 5. Continue glimepiride. 6. DVT prophylaxis. Lee Martin M.D. DR: CHEYENNE JOB#: [id number] CC:
[2019-01-26] MEDS: Solu-MEDROL 40mg Inj IVP SCH ×3 (06:06→19:56)
[2019-01-26] MEDS: Glimepiride 1mg tab ORAL SCH (06:08)
[2019-01-26] MEDS: NovoLOG Insulin Flexpen SUBQ SCH ×4 (06:12→20:58)
[2019-01-26] MEDS ORDERED: NovoLOG Insulin Flexpen SUBQ SCH (06:30)
--- NOTE | 2019-01-26 07:17 | NUR ---
HAND-OFF: Report given to Abhijit OSORIO RN. PATIENT RESTING IN BED, NO SIGNS OF DISTRESS NOTED.
--- NOTE | 2019-01-26 07:49 | NUR ---
NURSE NOTES: Report received from JOYCE Woody. Pt shows no signs of distress, A+Ox4, denies pain/SOB. Respirations are even and unlabored on room air. Left upper arm double lumen PICC noted. Bed is at lowest position, brakes engaged, siderails x2, bed alarm on, and call light within reach. Pt is in stable condition at this time; will continue to monitor.
[2019-01-26 07:58] VITALS: BP 124/82
[2019-01-26] MEDS: Heparin 5000 units/ml inj SUBQ SCH ×2 (08:52→20:03)
--- NOTE | 2019-01-26 09:13 | NUR ---
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
--- NOTE | 2019-01-26 11:30 | NUR ---
NURSE NOTES: Left message with Dr. Sharif regarding patient's pain not being alleviated by tylenol. Also let him know patient is requesting sleeping pill for tonight; awaiting response.
--- NOTE | 2019-01-26 11:46 | NUR ---
*-* INSURANCE *-* ALL CLINICALS AND REVIEWS HAVE BEEN FAXED TO: [facility] [phone] MECHELLE Avendano/LEANNE REF#[id number] NO DIRECT SALES REPRESENTATIVE ASSIGNED YET FAX#[phone] REVIEWS/CLINICAL
[2019-01-26 12:00] VITALS: BP 138/79
[2019-01-26 16:00] VITALS: BP 117/76
--- NOTE | 2019-01-26 16:00 | NUR ---
NURSE NOTES: PICC line dressing changed.
[2019-01-26] MEDS: Promethazine/Codeine 5ml UD ORAL PRN (16:28)
[2019-01-26] MEDS: Montelukast 10mg tablet ORAL SCH (16:32)
--- NOTE | 2019-01-26 19:15 | NUR ---
HAND-OFF: Report given to JOYCE Mcdaniels. Pt is in stable condition; plan of care endorsed.
--- NOTE | 2019-01-26 19:39 | NUR ---
NURSE NOTES: Received pt from JOYCE Wilson. Pt awake, alert, and c/o pain. Bed in lowest position. Call light within reach. Will continue to monitor.
[2019-01-26] MEDS: Tylenol #3 tab (300mg/30mg) ORAL PRN (19:57)
[2019-01-26 20:00] VITALS: BP 121/85
--- NOTE | 2019-01-26 23:45 | History and Physical Report ---
DATE OF ADMISSION: 01/25/2019 CHIEF COMPLAINT: Asthma/COPD exacerbation. HISTORY OF PRESENT ILLNESS: The patient is a pleasant 68-year-old female. She has a history of asthma, COPD, hypertension, diabetes, and GERD. 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 She took some breathing treatments at the doctor's office, but symptoms did not improve. She, therefore, presented to the emergency room. On evaluation there, she was diagnosed with COPD/asthma exacerbation. She had only minimal improvement with breathing treatments, however, failure to respond to therapy. She is admitted for further evaluation and care. PAST MEDICAL HISTORY: As above. PAST SURGICAL HISTORY: None. CURRENT MEDICATIONS: Reconciled and reviewed. ALLERGIES: Metformin. FAMILY HISTORY: Noncontributory. SOCIAL HISTORY: The patient is a smoker. No alcohol. No drugs. REVIEW OF SYSTEMS: GENERAL: No fevers or chills. HEENT: No headaches or visual changes. CARDIOPULMONARY: No chest pain. Positive shortness of breath and wheezing. GASTROINTESTINAL: No nausea or vomiting. GENITOURINARY: No urgency or frequency. MUSCULOSKELETAL: No joint pain or swelling. NEUROLOGIC: No evidence of seizures. PHYSICAL EXAMINATION: VITAL SIGNS: Temperature is 97.2, pulse 109, respirations 16, and blood pressure 138/79. GENERAL: The patient is a well-developed female, in no apparent distress. She is awake, alert, and oriented x4. She is able to speak in full sentences. NECK: Supple. HEART: Regular rate and rhythm. LUNGS: Significantly diminished breath sounds with scattered wheezes, but no rales. ABDOMEN: Soft, nontender, nondistended. EXTREMITIES: Without clubbing, cyanosis, or edema. LABORATORY DATA: White count 8, hemoglobin 14, hematocrit 41, and platelets of 314,000. Sodium 139, potassium 3.6, BUN 14, and creatinine was 0.9. UA was clear. Chest x-ray was also clear. ASSESSMENT: This is a pleasant 68-year-old female with history of hypertension and diabetes, admitted with exercise-induced asthma/COPD exacerbation. PLAN: Intravenous steroids and respiratory treatments. Cough treatment as needed. Continue outpatient cardiac and diabetic regimen. We will monitor blood sugars. Anticipate at least a 3- hospitalization for the patient's asthma exacerbation to resolve. Plan of care was discussed with the patient at the bedside. Micheal Sharif M.D. DR: RASHAAD JOB#: [id number] CC:
[2019-01-27] VITALS: BP 119/80
[2019-01-27] MEDS: Albuterol/Ipratropium 3ml neb HHN SCH ×6 (03:38→23:25)
[2019-01-27 03:49] VITALS: BP 123/77
[2019-01-27] MEDS: Promethazine/Codeine 5ml UD ORAL PRN ×2 (04:12→19:48)
[2019-01-27] MEDS: Glimepiride 1mg tab ORAL SCH (05:49)
[2019-01-27] MEDS: Solu-MEDROL 40mg Inj IVP SCH ×2 (05:49→14:59)
[2019-01-27] MEDS: NovoLOG Insulin Flexpen SUBQ SCH ×4 (05:49→20:50)
--- NOTE | 2019-01-27 07:53 | NUR ---
HAND-OFF: Report given to JOYCE Gallagher. Pt stable.
[2019-01-27 08:00] VITALS: BP 95/47
[2019-01-27 08:32] LABS: HEMATOCRIT 39.1 % (37.0-47.0); HEMOGLOBIN 13.2 G/DL (12.0-16.0); MEAN CORPUSCULAR VOLUME 93 FL (80-99); PLATELET COUNT 273 K/UL (150-450); RED BLOOD COUNT 4.21 M/UL (4.20-5.40); RED CELL DISTRIBUTION WIDTH 12.8 % (11.6-14.8); WHITE BLOOD COUNT 16.8 K/UL (4.8-10.8)
[2019-01-27] MEDS: Heparin 5000 units/ml inj SUBQ SCH ×2 (08:45→20:51)
[2019-01-27] MEDS: Tylenol #3 tab (300mg/30mg) ORAL PRN (08:45)
[2019-01-27 08:49] LABS: ALANINE AMINOTRANSFERASE 19 U/L (12-78); ALBUMIN 3.5 G/DL (3.4-5.0); ALBUMIN/GLOBULIN RATIO 0.9 (1.0-2.7); ALKALINE PHOSPHATASE 54 U/L (46-116); ANION GAP 8 mmol/L (5-15); ASPARTATE AMINO TRANSFERASE 22 U/L (15-37); BILIRUBIN,TOTAL 0.3 MG/DL (0.2-1.0); BLOOD UREA NITROGEN 25 mg/dL (7-18); CALCIUM 9.2 MG/DL (8.5-10.1); CARBON DIOXIDE 25 MMOL/L (21-32); CHLORIDE 105 MMOL/L (98-107); POTASSIUM 4.6 MMOL/L (3.5-5.1); SODIUM 138 MMOL/L (136-145)
[2019-01-27] MEDS ORDERED: Tubing IV Secondary IV ONE (09:05)
[2019-01-27] MEDS ORDERED: NS 275ml ONE (09:05)
--- NOTE | 2019-01-27 11:35 | Diagnostic Imaging Report ---
Indications: Needs long-term IV access Technique: Procedure performed at bedside by Dr. Kunz. Procedural timeout performed. Ultrasound confirms patent compressible left brachial vein. Total sterile technique, including sterile probe cover and sterile gel, sterile gloves, hand hygiene, hat, mask,, sterile gown, large sterile drape, and preparation with 2% chlorhexidine utilized. Local anesthesia with 1% lidocaine. Ultrasound documents patent compressible left brachial vein Under real-time ultrasound guidance, puncture left brachial vein using 21-gauge needle, passage 0.018 guidewire, exchange for 4 [place] peel-away sheath. 4 [place] Bard dual-lumen power PICC cut to 30 cm., Per referring physician request It was inserted through the peel-away sheath. Peel-away sheath and guidewire removed. Catheter fixed to the skin. Both catheter ports aspirated and flushed. Patient tolerated procedure well, without immediate complication. Followup chest x-ray obtained, documents catheter tip position at the expected level of the mid subclavian vein Impression: Successful bedside placement of left arm PICC under sonographic guidance, as described above, cut short per referring physician request and suitable for use as a midline.
[2019-01-27 12:00] VITALS: BP 115/68
[2019-01-27 16:00] VITALS: BP 110/70
--- NOTE | 2019-01-27 16:06 | General Progress Note ---
Assessment/Plan Problem List: (1) Diabetes ICD Codes: E11.9 - Type 2 diabetes mellitus without complications SNOMED: 82754499 (2) Lactic acid acidosis ICD Codes: E87.2 - Acidosis SNOMED: 17857021 (3) COPD exacerbation ICD Codes: J44.1 - Chronic obstructive pulmonary disease with (acute) exacerbation SNOMED: 740534365 Status: stable, progressing Assessment/Plan: wean steroids cont resp rx o2 cough rx dc planning this weekend if continued clinical improvement Subjective ROS Limited/Unobtainable: No Constitutional: Reports: malaise, weakness HEENT: Reports: no symptoms Cardiovascular: Reports: no symptoms Respiratory: Reports: shortness of breath, wheezing Gastrointestinal/Abdominal: Reports: no symptoms Genitourinary: Reports: no symptoms Neurologic/Psychiatric: Reports: no symptoms Endocrine: Reports: no symptoms Hematologic/Lymphatic: Reports: no symptoms Allergies: Coded Allergies: METFORMIN (Verified Adverse Reaction, Severe, Lactic Acidosis, 01/25/19) All Systems: reviewed and negative except above Subjective no complaints. less sob but still with wheezing. no chest pain slept well. . Objective Last 24 Hour Vital Signs Date Time Temp Pulse Resp B/P (MAP) Pulse Ox O2 Delivery O2 Flow Rate FiO2 01/27/19 15:45 96 20 98 Room Air 01/27/19 15:39 102 20 96 Room Air 01/27/19 12:00 98.1 99 20 115/68 (84) 99 01/27/19 12:00 100 01/27/19 11:30 99 20 99 Room Air 01/27/19 11:15 84 20 93 Room Air 01/27/19 11:06 Room Air 01/27/19 09:15 98.1 01/27/19 08:44 99 115/86 01/27/19 08:13 96 20 99 Room Air 21 01/27/19 08:04 109 20 96 Room Air 01/27/19 08:00 103 01/27/19 08:00 98.4 99 18 95/47 (63) 99 01/27/19 04:00 99 01/27/19 03:49 98.1 101 18 123/77 (92) 98 01/27/19 03:47 99 18 97 Room Air 01/27/19 03:39 107 20 94 Room Air 01/27/19 00:00 94 01/27/19 00:00 98.0 97 19 119/80 (93) 96 01/26/19 23:47 102 18 98 Room Air 21 01/26/19 23:39 100 20 93 Room Air 21 01/26/19 21:00 Room Air 01/26/19 20:00 97.4 123 20 121/85 (97) 97 01/26/19 20:00 96 01/26/19 19:30 107 18 98 Room Air 21 01/26/19 19:20 103 22 95 Room Air 21 Intake and Output 01/26/19 01/27/19 19:00 07:00 Intake Total 500 ml Balance 500 ml Intake Oral 500 ml # Voids 7 3 Laboratory Tests 01/27/19 08:00: White Blood Count 16.8H, Red Blood Count 4.21, Hemoglobin 13.2, Hematocrit 39.1 , Mean Corpuscular Volume 93, Mean Corpuscular Hemoglobin 31.3H, Mean Corpuscular Hemoglobin Concent 33.8, Red Cell Distribution Width 12.8, Platelet Count 273, Mean Platelet Volume 6.8, Neutrophils (%) (Auto) , Lymphocytes (%) ( Auto) , Monocytes (%) (Auto) , Eosinophils (%) (Auto) , Basophils (%) (Auto) , Differential Total Cells Counted 100, Neutrophils % (Manual) 88H, Lymphocytes % (Manual) 9L, Monocytes % (Manual) 3, Eosinophils % (Manual) 0, Basophils % ( Manual) 0, Band Neutrophils 0, Platelet Estimate Adequate, Platelet Morphology Normal, Red Blood Cell Morphology Normal, Sodium Level 138, Potassium Level 4.6 , Chloride Level 105, Carbon Dioxide Level 25, Anion Gap 8, Blood Urea Nitrogen 25H, Creatinine 1.0, Estimat Glomerular Filtration Rate > 60, Glucose Level 124H , Calcium Level 9.2, Total Bilirubin 0.3, Aspartate Amino Transf (AST/SGOT) 22, Alanine Aminotransferase (ALT/SGPT) 19, Alkaline Phosphatase 54, Total Protein 7.6, Albumin 3.5, Globulin 4.1, Albumin/Globulin Ratio 0.9L Height (Feet): 5 Height (Inches): 5.00 Weight (Pounds): 160 General Appearance: WD/WN, alert Neck: supple Cardiovascular: regular rhythm Respiratory/Chest: chest wall non-tender, no respiratory distress, no accessory muscle use, expiratory wheezing Abdomen: normal bowel sounds, non tender, soft, no organomegaly, no mass Edema: no edema noted Arm (L), no edema noted Arm (R), no edema noted Leg (L), no edema noted Leg (R), no edema noted Pedal (L), no edema noted Pedal (R), no edema noted Generalized Micheal Sharif MD Jan 27, 2019 16:06
[2019-01-27] MEDS: Montelukast 10mg tablet ORAL SCH (16:53)
--- NOTE | 2019-01-27 19:11 | NUR ---
HAND-OFF: Report given to SERAFIN COOK..
--- NOTE | 2019-01-27 19:15 | NUR ---
Received report from Aileen COOK. Pt is AO x3 calm and comfortable. Bed is in lowest position and call light is within reach. Requests more food.
[2019-01-27] MEDS: Dyna-Hex 2% Top Sol 2oz TOPIC SCH (19:48)
[2019-01-27 20:00] VITALS: BP 130/81
[2019-01-27] MEDS ORDERED: Solu-MEDROL 40mg Inj IVP SCH (21:00)
[2019-01-28] MEDS: Albuterol/Ipratropium 3ml neb HHN SCH ×6 (03:15→23:25)
[2019-01-28 04:00] VITALS: BP 125/83
[2019-01-28] MEDS: Glimepiride 1mg tab ORAL SCH (06:11)
[2019-01-28] MEDS: Tylenol #3 tab (300mg/30mg) ORAL PRN ×3 (06:12→22:47)
[2019-01-28] MEDS: NovoLOG Insulin Flexpen SUBQ SCH ×4 (06:13→21:28)
--- NOTE | 2019-01-28 07:20 | NUR ---
HAND-OFF: Report given to Vandana COOK.
--- NOTE | 2019-01-28 07:21 | NUR ---
NURSE NOTES: Received patient in bed. In no apparent distress. Awake, alert, verbal, eating breakfast meal comfortably. Call light within reach. Will continue plan of care.
[2019-01-28 08:00] VITALS: BP 120/77
--- NOTE | 2019-01-28 08:18 | NUR ---
NURSE NOTES: Dr. Sharif at bedside.
--- NOTE | 2019-01-28 08:33 | General Progress Note ---
Assessment/Plan Problem List: (1) Diabetes ICD Codes: E11.9 - Type 2 diabetes mellitus without complications SNOMED: 59631757 (2) Lactic acid acidosis ICD Codes: E87.2 - Acidosis SNOMED: 15108575 (3) COPD exacerbation ICD Codes: J44.1 - Chronic obstructive pulmonary disease with (acute) exacerbation SNOMED: 439295793 Status: stable, progressing Assessment/Plan: wean steroids cont resp rx o2 cough rx stat head ct dc planning this weekend if continued clinical improvement Subjective ROS Limited/Unobtainable: No Constitutional: Reports: malaise, weakness HEENT: Reports: no symptoms Cardiovascular: Reports: no symptoms Respiratory: Reports: cough Gastrointestinal/Abdominal: Reports: no symptoms Genitourinary: Reports: no symptoms Neurologic/Psychiatric: Reports: headache, paresthesia Endocrine: Reports: no symptoms Hematologic/Lymphatic: Reports: no symptoms Allergies: Coded Allergies: METFORMIN (Verified Adverse Reaction, Severe, Lactic Acidosis, 01/25/19) All Systems: reviewed and negative except above Subjective severe left sided headache. sudden onset. less sob but still with wheezing. no chest pain slept well. . Objective Last 24 Hour Vital Signs Date Time Temp Pulse Resp B/P (MAP) Pulse Ox O2 Delivery O2 Flow Rate FiO2 01/28/19 07:20 97 20 97 Room Air 01/28/19 07:06 91 20 94 Room Air 01/28/19 04:00 104 01/28/19 04:00 97.7 98 20 125/83 (97) 96 01/28/19 03:25 100 20 98 Room Air 01/28/19 03:15 100 20 94 Room Air 01/28/19 00:04 98 01/27/19 23:35 100 20 99 Room Air 01/27/19 23:25 102 20 94 Room Air 01/27/19 21:00 Room Air 01/27/19 20:00 97.2 100 20 130/81 (97) 95 01/27/19 20:00 105 01/27/19 19:29 91 20 98 Room Air 01/27/19 19:19 94 20 95 Room Air 01/27/19 16:00 99.3 108 20 110/70 (83) 96 01/27/19 16:00 99 01/27/19 15:45 96 20 98 Room Air 01/27/19 15:39 102 20 96 Room Air 21 01/27/19 12:00 98.1 99 20 115/68 (84) 99 01/27/19 12:00 100 01/27/19 11:30 99 20 99 Room Air 21 01/27/19 11:15 84 20 93 Room Air 21 01/27/19 11:06 Room Air 01/27/19 09:15 98.1 01/27/19 08:44 99 115/86 Intake and Output 01/27/19 01/28/19 19:00 07:00 Intake Total 500 ml Balance 500 ml Intake Oral 500 ml # Voids 4 3 Height (Feet): 5 Height (Inches): 5.00 Weight (Pounds): 160 Micheal Sharif MD Jan 28, 2019 08:33
--- NOTE | 2019-01-28 08:54 | NUR ---
NURSE NOTES: Patient is off the unit, for CT Scan. In stable condition.
--- NOTE | 2019-01-28 09:24 | Diagnostic Imaging Report ---
EXAM: CT Head Without Intravenous Contrast CLINICAL HISTORY: CVA TECHNIQUE: Axial computed tomography images of the head/brain without intravenous contrast. Sagittal and coronal reformatted images were created and reviewed. CTDI is 70.38 mGy and DLP is 1386 mGy-cm. One or more of the following dose reduction techniques were used: automated exposure control, adjustment of the mA and/or kV according to patient size, use of iterative reconstruction technique. Coronal reformatted images were created and reviewed. COMPARISON: No relevant prior studies available. FINDINGS: Brain: Periventricular and subcortical white matter hypodensities, likely related to chronic small vessel disease changes. However, there is mildly asymmetrically increased white matter hypodensities along the left strange radiata, and cannot exclude subacute or chronic infarcts. No mass effect or midline shift. No evidence of acute intracranial hemorrhage. Ventricles: Unremarkable. No ventriculomegaly. Bones/joints: Unremarkable. No depressed skull fracture. Soft tissues: Unremarkable. Sinuses: Unremarkable as visualized. No acute sinusitis. Mastoid air cells: Unremarkable as visualized. No mastoid effusion. IMPRESSION: 1. Periventricular and subcortical white matter hypodensities, likely related to chronic small vessel disease changes. 2. However, there is mildly asymmetrically increased white matter hypodensities along the left strange radiata, and cannot exclude subacute or chronic infarcts. 3. No mass effect or midline shift. No evidence of acute intracranial hemorrhage.
--- NOTE | 2019-01-28 09:27 | NUR ---
NURSE NOTES: Telephone order received from Dr. Sharif to have DSS 250mg q12 and and Bisacodyl PRN for constipation.
[2019-01-28] MEDS ORDERED: Bisacodyl EC 5mg tab ORAL PRN (09:33)
[2019-01-28] MEDS: Solu-MEDROL 40mg Inj IVP SCH (09:57)
[2019-01-28] MEDS: Heparin 5000 units/ml inj SUBQ SCH ×2 (09:58→20:51)
[2019-01-28] MEDS ORDERED: Docusate 250mg cap ORAL SCH (10:30)
[2019-01-28 12:00] VITALS: BP 126/81
[2019-01-28 16:00] VITALS: BP 134/76
--- NOTE | 2019-01-28 16:00 | NUR ---
HAND-OFF: Report given to Erik Elizabeth RN.
[2019-01-28] MEDS: Montelukast 10mg tablet ORAL SCH (16:50)
--- NOTE | 2019-01-28 19:10 | NUR ---
HAND-OFF: Report given to JOYCE Oswald.
--- NOTE | 2019-01-28 19:15 | NUR ---
NURSE NOTES: Received patient awake, lying in semi-jeff's; resting comfortably; A/Ox4. Denies pain at this time. No signs of acute cardio respiratory distress noted. Able to make needs known. Checked IV site at left upper arm PICC line intact and flushed. No erythema, bleeding or infiltrated noted. Bed at lowest position, brakes on, siderails x 3. Call light within reach. Comfort measures provided. Will continue to monitor.
--- NOTE | 2019-01-28 19:15 | NUR ---
NURSE NOTES: Received patient awake, lying in semi-jeff's; ongoing breathing treatment; resting comfortably; A/Ox4. Denies pain at this time. No signs of acute cardio respiratory distress noted. Able to make needs known. Checked IV site at right forearm G22 intact and flushed. No erythema, bleeding or infiltrated noted. Bed at lowest position, brakes on, siderails x 3. Call light within reach. Comfort measures provided. Will continue to monitor. Addendum: 01/28/19 at 1933 by Michelle Painter RN Charted on wrong patient.
[2019-01-28 20:00] VITALS: BP 123/77
[2019-01-28] MEDS: Dyna-Hex 2% Top Sol 2oz TOPIC SCH (20:49)
[2019-01-28] MEDS: Docusate 250mg cap ORAL SCH (20:51)
[2019-01-28] MEDS: Promethazine/Codeine 5ml UD ORAL PRN (21:22)
[2019-01-29] VITALS: BP 119/88
[2019-01-29] MEDS: Albuterol/Ipratropium 3ml neb HHN SCH ×3 (03:23→11:05)
--- NOTE | 2019-01-29 03:41 | NUR ---
NURSE NOTES: Safety maintained throughout the night. Rested well. No significant change of condition noted. Continue with current plan of care.
[2019-01-29 04:00] VITALS: BP 124/83
[2019-01-29] MEDS: Glimepiride 1mg tab ORAL SCH (05:54)
[2019-01-29] MEDS: NovoLOG Insulin Flexpen SUBQ SCH ×2 (05:57→11:30)
[2019-01-29] MEDS ORDERED: BREO ELLIPTA 11 EACH IH (07:39)
--- NOTE | 2019-01-29 07:49 | NUR ---
HAND-OFF: Report given to JOYCE Gomez. No acute s/s of distress noted.
[2019-01-29 08:00] VITALS: BP 120/82
[2019-01-29 09:32] VITALS: BP 120/82
[2019-01-29] MEDS: Solu-MEDROL 40mg Inj IVP SCH (09:32)
[2019-01-29] MEDS: Docusate 250mg cap ORAL SCH (09:32)
[2019-01-29] MEDS: Heparin 5000 units/ml inj SUBQ SCH (09:36)
[2019-01-29] MEDS: Promethazine/Codeine 5ml UD ORAL PRN (09:55)
--- NOTE | 2019-01-29 13:00 | NUR ---
NURSE NOTES: PT WHEELED TO DISCHARGE AREA BY [facility] STAFF ON STABLE CONDITION. PT LEFT THE HOSP ACCOMPANIED WITH HER SON. 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
--- NOTE | 2019-01-29 20:30 | Discharge Summary ---
DATE OF ADMISSION: 01/25/2019 DATE OF DISCHARGE: 01/29/2019 ADMISSION DIAGNOSES: 1. Asthma/COPD exacerbation. 2. Hypertension. 3. Diabetes. DISCHARGE DIAGNOSES: 1. Asthma/COPD exacerbation. 2. Hypertension. 3. Diabetes. HOSPITAL COURSE: The patient is a pleasant female who presented with complaints of COPD exacerbation. She received intravenous steroids, respiratory treatments [id number]. She received antibiotic therapy. She had gradual improvement. Her hospital course was complicated by headache. She had a head CT that showed only chronic changes. She will be discharged home on steroid taper. Please see discharge medication list for discharge medications. DIET: Cardiac and diabetic diet. ACTIVITY: Ad-fiorella. FOLLOW UP: The patient to follow up in the office in one to two weeks. Micheal Sharif M.D. DR: Susanne JOB#: [id number] CC:
--- NOTE | 2019-01-30 19:58 | Cardiology Report ---
APPROVED REPORT EKG Measurement Heart [id number] Sinus tachycardia with occasional premature ventricular complexes Biatrial enlargement Abnormal ECG
--- NOTE | 2019-01-31 21:45 | Progress Note ---
DATE: 01/28/2019 CARDIOLOGY PROGRESS NOTE Late entry. SUBJECTIVE: The patient is on weaning steroid doses. Her shortness of breath has decreased. She has less cough. OBJECTIVE: VITAL SIGNS: Blood pressure 120/82, heart rate 97, respirations 18, afebrile, and room air oxygen saturation 96%. LUNGS: Diminished breath sounds. No wheezing. HEART: Regular rhythm and rate. Normal S1, S2. ABDOMEN: Soft. EXTREMITIES: No edema. IMPRESSION: 1. Acute bronchospasm, resolved. 2. COPD exacerbation, improving. 3. Hypertensive heart disease now with controlled blood pressure. 4. Type 2 diabetes mellitus on oral therapy with history of metformin-associated lactic acidosis. PLAN: 1. Oral steroids upon discharge. 2. Maintain current antihypertensives. 3. Outpatient Cardiology followup arranged. Lee Martin M.D. DR: CHEYENNE JOB#: [id number] CC:
== END 2019-01-29 13:10 | disposition home or self-care (01) | DRG 140 ==
LOC: EDBD 15:13 → EMR 15:41 → 2E 16:05 → EDBEDREQ 17:26
PROC: 05H633Z Insertion of Infusion Device into Left Subclavian Vein, Percutaneous Approach (ICD-10-PCS; principal; 2019-01-25)
DX: J44.1 Chronic obstructive pulmonary disease with (acute) exacerbation (principal); I13.10 Hypertensive heart and chronic kidney disease without heart failure, with stage 1 through stage 4 chronic kidney disease, or unspecified chronic kidney disease; E11.22 Type 2 diabetes mellitus with diabetic chronic kidney disease; N18.9 Chronic kidney disease, unspecified; Z88.8 Allergy status to other drugs, medicaments and biological substances; F17.200 Nicotine dependence, unspecified, uncomplicated; M19.90 Unspecified osteoarthritis, unspecified site; E11.40 Type 2 diabetes mellitus with diabetic neuropathy, unspecified; Z79.84 Long term (current) use of oral hypoglycemic drugs; E87.2 Acidosis
CPT/HCPCS: 36415; 36569; 70450; 71045; 76937; 80053; 81003; 82550; 82553; 82962; 83605; 83880; 84484; 85007; 85025; 87040; 93005; 94640; 94664; 96365; 96375; 99285; J1815; J7620